=== PATIENT | female | born 1945 | race Caucasian/White ===

== ENCOUNTER 2017-11-11 03:53 | Inpatient (IN) | payer MEDICARE, OTHER, SELFPAY ==
[2017-11-11] VITALS (16 sets, daily range): BP systolic 112–154; BP diastolic 44–80; PULSE 71–110; RESP 16–26; TEMP 36.2–36.7; O2SAT 90–94; BMI 30.2; BMI 29.7; BMI 29.8
--- NOTE | 2017-11-11 03:55 | NURSING ---
CALLED FOR EKG PER RN REQUEST, PULLED OLD EKG'S FOR
--- NOTE | 2017-11-11 04:15 | RAD_ITS ---
STUDY: X-RAY CHEST REASON FOR EXAM: Female, 71 years old. Dyspnea TECHNIQUE: Frontal and lateral views of the chest. COMPARISON: October 09, 2016 FINDINGS: Ill-defined groundglass opacities are noted in the left lung base suggesting pneumonia in the lingula and left lower lobe. There is no demonstrated pleural abnormality. Normal size heart. Normal mediastinum and tj. Normal visualized pulmonary arteries. Normal visualized aortic arch and descending thoracic aorta. Normal visualized thoracic spine. Normal visualized ribs, clavicles, and shoulders. There is no demonstrated abnormality of the visualized soft tissue structures of the upper abdomen. RAD/Chest PA and Lateral IMPRESSION: Pneumonia in the lingula and left lower lobe. Electronically Signed: Caron Velazco MD at 5:18 EST Tel , Service support ,
--- NOTE | 2017-11-11 04:15 | EKG12_ITS ---
Test Reason : SOB Blood Pressure : / mmHG Vent. Rate : 102 BPM Atrial Rate : 102 BPM P-R Int : 116 ms QRS Dur : 078 ms QT Int : 348 ms P-R-T Axes : 087 072 078 degrees QTc Int : 453 ms Sinus tachycardia Nonspecific ST abnormality Abnormal ECG Confirmed by BRIAN ORELLANA, NATANAEL ([id number]), news copy editor HERI CUNHA ([id number]) on 11/16/2017 3:56:35 PM Referred By: NOAH Confirmed By:NATANAEL TORRES MD
[2017-11-11] MEDS: Albuterol 2.5 MG/3 ML VIAL.NEB. INHALATION ×3 (04:20→04:34)
[2017-11-11] MEDS: Ipratropium/Albuterol Sulfate 3 ML AMPUL.NEB INHALATION ×3 (04:20→20:10)
[2017-11-11 04:30] LABS: Absolute Lymphocyte Count 2.12 X10^3/ul (0.83-4.51); Basophil# 0.06 X10^3/uL; Basophil% 0.4 % (0-1); Eosinophil# 0.24 X10^3/uL; Eosinophils% 1.6 % (0-5); Hematocrit 37.4 % (37-47); Hemoglobin 12.4 g/dl (12.0-15.0); Lymphocyte # 2.12 X10^3/ul (4.0); Lymphocyte % 14.4 % (19-41); Mean Corp Hgb Conc 33.2 g/gl (32-36); Mean Corpuscular Hgb 30.8 pg (27.0-32.0); Mean Corpuscular Volume 92.8 fL (81-99); Mean Platelet Vol. 10.8 fl (6.2-12.0); Monocyte# 1.29 X10^3/uL; Monocyte% 8.8 % (0-10); Neutrophil # 10.97 X10^3/uL (2.7-7.7); Neutrophil % 74.5 % (47-70); Platelet Count 242 K/mm3 (150-450); RBC Distribution Width CV 13.1 % (11.6-14.6); Red Blood Count 4.03 M/mm3 (4.2-5.4); White Blood Count 14.7 K/mm3 (4.4-11.0)
[2017-11-11 04:35] LABS: POSITIVE COUNT NO; POSITIVE DIFFERENTIAL NO; POSITIVE MORPHOLOGY NO
[2017-11-11 04:53] LABS: Anion Gap 10 (5-15); BUN 18 mg/dL (7-18); BUN/Creat Ratio 16.2 RATIO (10-20); Calcium,Total 8.9 mg/dL (8.5-10.1); Chloride 100 mmol/L (98-107); Creatinine, Serum 1.11 mg/dL (0.55-1.02); EST Glomerular Filtration Rate 52 mL/min (>60); Est Glom Filt Rate - Afr Amer 62 mL/min (>60); Estimated Creatinine Clearance 33.87 ml/min; Glucose 178 mg/dL (70-110); Sodium Level 136 mmol/L (136-145)
--- NOTE | 2017-11-11 05:01 | CT_ITS ---
STUDY: CTA CHEST REASON FOR EXAM: Female, 71 years old. Dyspnea RADIATION DOSAGE (If Supplied By Facility): CTDIvol = ( 10.49 ) mGy, DLP = ( 511.64 ) mGycm TECHNIQUE: The examination was performed with the intravenous administration of 75CC ml of Isovue 370 contrast material. Post-processing of the angiographic images was performed, with multiplanar reformation and 3D reconstruction. Individualized dose optimization techniques were used for this CT. COMPARISON: None. FINDINGS: Normal enhancement of the main pulmonary artery and right and left pulmonary arteries. Normal enhancement of the bilateral peripheral pulmonary arteries. There is no demonstrated pulmonary embolism. Normal thoracic aorta and visualized great vessels. There is no demonstrated aortic dissection. Normal heart and pericardium. Normal mediastinum. Normal hilar regions. Normal visualized trachea and bronchi. The lungs are hyperinflated. Emphysematous changes are noted in both lungs predominantly centrilobular type more prominent in the upper lobes. Ill-defined airspace opacities are seen in the left upper lobe and lingula consistent with pneumonia. Normal pleura. Normal chest wall structures. There are degenerative changes and demineralization of thoracic spine. There is a benign adenoma and the right adrenal gland measures [address]/CTA Chest W/WO Contrast IMPRESSION: No demonstrated pulmonary embolism or arterial dissection. Left upper lobe and lingula pneumonia Electronically Signed: Caron Velazco MD at 7:35 EST Tel , Service support ,
[2017-11-11] MEDS: fentaNYL 100 MCG/2 ML Ampul 50 MCG IV ×3 (05:05→10:16)
[2017-11-11 05:08] LABS: BNP,B-Type NATRIURETIC PEPTIDE 90.1 pg/mL (0-100)
--- NOTE | 2017-11-11 05:35 | ED.DCSUM_ITS ---
- ER Visit Summary Date of Service: 11/11/17 Chief Complaint: [] Shortness of breath History of Present Illness: The patient is a 71 F complaining of shortness of breath for last several months but worse over the last 2 days. She has had some dyspnea on exertion with wheezing. She uses a nebulizer. She has a history of COPD. She has had a cough with yellow yellow sputum over the last 7 days intermittent fevers and chills. T-max 102 at home. She has had some left- sided chest pain tonight at 2 AM at rest. It hurts to take a deep breath. She has a history of coronary artery disease remotely with multiple stents. She had a CABG with aortic valve replacement a year ago. She is not on home oxygen. She did get a flu shot. Physical Examination: Vital signs reviewed General: Well-nourished well-developed Head: Normocephalic atraumatic Eyes: Pupils equal round and reactive to light extraocular movements intact ENT: TMs clear no hemotympanum no trauma Neck: Nontender full range of motion Cardiovascular: Regular tachycardia with normal rhythm no murmurs normal S1-S2 Respiratory: No distress very wheezes bilateral chest nontender Abdomen: Soft nontender nondistended normal bowel sounds no masses Back: Nontender no CVA tenderness Extremities: Nontender active range of motion ?4 extremities no trauma Skin: Normal color no trauma Neuro alert oriented cranial nerves II through XII intact normal strength sensation reflexes Test Results: [] Emergency Department Course and Treatment: [] EKG shows sinus at a rate of 102. Mild ST depression inferior lead II only. Chest x-ray shows a left-sided infiltrate pneumonia. CBC normal except white count of 14.7. Chemistries normal except creatinine 1.1 glucose 178. Troponin less than 0.02. BNP normal. Blood cultures pending. Lactate pending. Influenza negative. Patient given morphine and fentanyl for her pain. It is a sharp pleuritic pain likely from her pneumonia. She is given breathing treatments for her wheezing with good symptom control. She is placed on nasal cannula oxygen for her shortness of breath and pulse ox of 90%. Patient was started on levofloxacin for her pneumonia. She is given a small dose IV fluids and Solu-Medrol and Benadryl will be given prior to CTA. Will make sure she does not have a pulmonary embolism prior to admission. Treatment Plan: [] Disposition: [] Impression: [] Community-acquired pneumonia Left sided chest pain secondary to pneumonia This note was generated with [employer] dictation software. It may contain incorrect words, spelling, and punctuation that were not noted in review of the chart prior to signing ED Disposition - Plan for ED Patient: Chief Complaint: Shortness of Breath Referrals: Heidy Lowry [Primary Care Provider] -
[2017-11-11] MEDS: MethylPREDNISolone 125 MG/2 ML Vial IV (05:36)
[2017-11-11] MEDS: DiphenhydrAMINE 50 MG/ML Syringe 25 MG IV (05:36)
[2017-11-11 05:59] LABS: Lactic Acid 1.8 mmol/L (0.4-2.0)
--- NOTE | 2017-11-11 06:25 | PCM.HP.STD ---
Problem List (1) Shortness of breath Status: Acute (2) Left sided chest pain Status: Acute (3) Productive cough Status: Acute History of Present Illness Date of Admission: 11/11/17 Chief Complaint: Productive cough, left-sided chest pain, shortness of breath The patient is a 71 year old F was seen in the emergency room at [facility] with chief complaint of increased shortness of breath, left-sided sharp chest pain which worsened on cough or deep inspiration and cough productive of yellow and green sputum over the past week. Patient states the left-sided chest pain started early this morning. Patient denied any hemoptysis. Patient admits to chills and fever yesterday, she states her temperature was up to 102.1. Patient has a history of chronic obstructive pulmonary disease but does not wear oxygen but uses inhalers at home. Patient states she had a CT of her chest done in [facility] in September 2017 and according to the patient, it showed a nodule in the right lung. Valuation in the emergency room included labs which showed an elevated white blood cell count of 14.7, beta natruretic peptide was normal at 90, creatinine was elevated at 1.11, glucose is 178, lactic acid was 1.8. Chest x-ray revealed chronic lung changes but also showed evidence of an infiltrate over the left lower lobe. On physical examination, patient had expiratory wheezes over both lungs with inspiratory rales over the left lower lobe, heart rate and rhythm is regular, patient was alert but was complaining of some left-sided sharp chest pain. Emergency room physician requested that a CTA of the chest be performed, at the time of this dictation this CTA of the chest is pending. Patient will be admitted for left lower lobe community-acquired pneumonia and exacerbation of COPD, she will be placed on IV Levaquin, aggressive aerosol treatments, IV Solu-Medrol, urine antigens will be ordered, and sputum culture will be obtained. Blood cultures were obtained in the emergency room. Past Medical History Allergies Sulfa (Sulfonamide Antibiotics) Allergy (Verified 11/11/17 03:54) Rash carbamazepine [From Tegretol] Adverse Reaction (Verified 11/11/17 03:54) liver damage famotidine [From Pepcid] Adverse Reaction (Verified 11/11/17 03:54) hair loss ivp dye Allergy (Uncoded 11/11/17 03:54) Hives Home Medications: Ambulatory Orders Medication Instructions Recorded Aspirin [Aspirin, Baby] 81 mg PO BID 10/08/16 Ipratropium/Albuterol Respimat 1 puff INHALATION BID 10/08/16 [Combivent Respimat Inhal [place]] Metoprolol Tartrate [Lopressor 50 mg PO BID 10/08/16 (beta gila)] Pantoprazole Sodium [Protonix] 40 mg PO DAILY 10/08/16 Rosuvastatin Calcium [Crestor] 20 mg PO QHS 10/08/16 Valsartan [Diovan] 80 mg PO BID 10/08/16 Amlodipine [Norvasc] 2.5 mg PO DAILY 11/11/17 Fluticasone/Salmeterol [Advair 1 puff INHALATION BID 11/11/17 250/50 Mcg Diskus] Hydrochlorothiazide [Hctz] 25 mg PO DAILY 11/11/17 Montelukast [Singulair] 10 mg PO DAILY 11/11/17 Surgical History: cataract, cholecystectomy, coronary bypass surgery, herniorrhaphy, - - Partial gastrectomy secondary to gastric cancer in 2011, neurostimulator implant left arm due to cut radial nerve, partial colon resection secondary to diverticulitis, bioprosthetic aortic valve, coronary artery stents Psychiatric History: No pertinent psych hx 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 Denies: Anorexia, Night Sweats, Weakness, Weight Change Eyes: Denies: Blurred vision, Cataracts, Conjunctivae Inflammation, Double vision, Drainage, Eyelid Inflammation HEENT: Denies: Difficulty Swallowing, Dysphasia, Ear Pain, Eye Pain, Head Aches, Hearing Changes, Nasal bleeding, Nasal Congestion, Sinus Drainage Cardiovascular: Reports: Chest Pain. Denies: Claudication, Chest Pressure, Chest Tightness, Edema, Heaviness, Light Headedness, Orthopnea, Palpitations, Paroxysmal Noc. Dyspnea, Syncope Respiratory: Reports: Cough, Pleuritic Pain, Shortness of Breath, Shortness of breath at rest, Shortness of breath upon exertion, Sputum production, Wheezing. Denies: Hemoptysis Gastrointestinal: Denies: Abdominal Pain, Constipation, Diarrhea, Hematemesis, Hematochezia, Nausea, Melena, Vomiting Genitourinary: Denies: Dysuria, Frequency, Hematuria, Hesitancy, Incontinence, Nocturia, Urgency Gynecological: Denies: Breast symptoms Musculoskeletal: Denies: Foot Pain, Hand Pain, Joint Pain, Joint stiffness, Joint swelling, Joint Tenderness, Leg Pain Skin: Denies: Dryness, Jaundice, Pruritis, Rash Neurological: Denies: Blurred vision, Double vision, Slurred speech, Difficulty swallowing, Focal weakness, Headaches, Incoordination, Numbness, Tingling Psychiatric: Denies: Anxiety, Depression, Homicidal Ideations, Suicidal Ideations Endocrine: Denies: Change in Body Habitus, Heat/ Cold Intolerance, Polydipsia, Polyuria Hematologic/ Lymphatic: Denies: Adenopathy, Anemia, Easy Bruising, Easy Bleeding, Petechiae, Purpura VTE Information - Inpt Only VTE Present on Admission: No VTE Mechan Device Prophylaxis: None VTE Pharm Prophylaxis ordered?: Yes Patient Problems: Active and Suspected Problems Shortness of breath (Acute) Left sided chest pain (Acute) Productive cough (Acute) - Physical Exam General: Alert, Oriented x3, Cooperative, No apparent distress, Well developed, Well nourished HEENT: Atraumatic, PERRLA, EOMI, Normocephalic Oral: Moist Mucosa Neck: Supple, No JVD, Negative Carotid Bruits, No Nuchal Rigidity, Trachea Midline, Thyroid Normal Size and Texture Lungs: Normal air movement, No rhonchi, Rales - Inspiratory rales at the left lung base, Wheezes - Expiratory wheezes bilaterally Cardiovascular: Regular rate, Regular Rhythm, Normal S1, Normal S2, No murmurs, No Ectopic Activity, PMI Normal, No rub noted, No Gallop Abdomen: Bowel Sounds Present, Soft, Non Tender, Non-Distended, No hernias noted Extremities: No clubbing, No cyanosis, No edema, Capillary Refill Less than 3 Seconds Skin: No rashes, No breakdown Musculoskeletal: No Tenderness to Palpation of Joints or Extremities Neurological: Cranial nerves II-XII grossly intact, Neuro grossly intact, Muscle tone normal, Sensory exam intact to light touch and pain, Coordination normal Psych/Mental Status: Normal Affect, Appropriate, Alert and oriented to time, place, person, mood and affect Vital Signs Temp Pulse Resp BP Pulse Ox 97.7 F L 100 18 112/44 L 93 11/11/17 05:43 11/11/17 06:08 11/11/17 06:08 11/11/17 06:08 11/11/17 06:08 Oxygen Flow Rate 2 Oxygen Delivery Method Nasal Cannula Weight: 70.3 kg Body Mass Index (BMI) 30.2 Microbiology Past 72 Hours 11/11/17 04:18 Influenza Types A,B Direct FA (ALEXUS) - Final Mucosa - Nose Laboratory Tests Past 24 Hrs 11/11/17 11/11/17 11/11/17 03:55 03:55 03:55 WBC 14.7 H RBC 4.03 L Hgb 12.4 Hct 37.4 MCV 92.8 MCH 30.8 MCHC 33.2 RDW 13.1 RDW Differential 43.0 Plt Count 242 MPV 10.8 Immature Gran % (Auto) 0.300 Neut % (Auto) 74.5 H Lymph % (Auto) 14.4 L Stevens % (Auto) 8.8 Eos % (Auto) 1.6 Baso % (Auto) 0.4 Absolute Neuts (auto) 11.0 H Absolute Lymphs (auto) 2.12 Total Counted Not Reportable Sodium 136 Potassium 4.0 Chloride 100 Carbon Dioxide 26.0 Anion Gap 10 BUN 18 Creatinine 1.11 H Estim Creat Clear Calc 33.87 Est GFR (MDRD) Af Amer 62 Est GFR (MDRD) Non-Af 52 L BUN/Creatinine Ratio 16.2 Glucose 178 H Lactic Acid Calcium 8.9 Troponin I < 0.02 B-Natriuretic Peptide 90.1 11/11/17 05:20 WBC RBC Hgb Hct MCV MCH MCHC RDW RDW Differential Plt Count MPV Immature Gran % (Auto) Neut % (Auto) Lymph % (Auto) Stevens % (Auto) Eos % (Auto) Baso % (Auto) Absolute Neuts (auto) Absolute Lymphs (auto) Total Counted Sodium Potassium Chloride Carbon Dioxide Anion Gap BUN Creatinine Estim Creat Clear Calc Est GFR (MDRD) Af Amer Est GFR (MDRD) Non-Af BUN/Creatinine Ratio Glucose Lactic Acid 1.8 Calcium Troponin I B-Natriuretic Peptide Assessment/Plan Active and Suspected Problems Shortness of breath (Acute) Left sided chest pain (Acute) Productive cough (Acute) #1 left lower lobe community-acquired pneumonia-suspect gram-positive bacteria-patient will be admitted to [facility], IV Levaquin will be given, aerosol treatments will be given, sputum culture will be obtained, urine for Legionella and strep pneumoniae will be obtained, respiratory panel will be obtained #2 exacerbation of COPD-IV corticosteroids will be administered, aerosol treatments will be administered, oxygen sat will be monitored-currently patient's oxygen sat on room air is 90% #3 left-sided chest pain-pleuritic in nature #4 coronary artery disease-stable #5 hypertension #6 hyperlipidemia #7 history of right pulmonary nodule/mass-patient's last CT chest was done in [place] of September 2017 Await the results of the CTA of the chest Code Visit Inpatient E&M: 39962 Init Hosp L3
--- NOTE | 2017-11-11 06:35 | HP.PCM_ITS ---
Problem List (1) Shortness of breath Status: Acute (2) Left sided chest pain Status: Acute (3) Productive cough Status: Acute History of Present Illness Date of Admission: 11/11/17 Chief Complaint: Productive cough, left-sided chest pain, shortness of breath The patient is a 71 year old F was seen in the emergency room at [facility] with chief complaint of increased shortness of breath, left- sided sharp chest pain which worsened on cough or deep inspiration and cough productive of yellow and green sputum over the past week. Patient states the left-sided chest pain started early this morning. Patient denied any hemoptysis. Patient admits to chills and fever yesterday, she states her temperature was up to 102.1. Patient has a history of chronic obstructive pulmonary disease but does not wear oxygen but uses inhalers at home. Patient states she had a CT of her chest done in [facility] in September 2017 and according to the patient, it showed a nodule in the right lung. Valuation in the emergency room included labs which showed an elevated white blood cell count of 14.7, beta natruretic peptide was normal at 90, creatinine was elevated at 1.11, glucose is 178, lactic acid was 1.8. Chest x-ray revealed chronic lung changes but also showed evidence of an infiltrate over the left lower lobe. On physical examination, patient had expiratory wheezes over both lungs with inspiratory rales over the left lower lobe, heart rate and rhythm is regular, patient was alert but was complaining of some left-sided sharp chest pain. Emergency room physician requested that a CTA of the chest be performed, at the time of this dictation this CTA of the chest is pending. Patient will be admitted for left lower lobe community-acquired pneumonia and exacerbation of COPD, she will be placed on IV Levaquin, aggressive aerosol treatments, IV Solu-Medrol, urine antigens will be ordered, and sputum culture will be obtained. Blood cultures were obtained in the emergency room. Past Medical History Allergies Sulfa (Sulfonamide Antibiotics) Allergy (Verified 11/11/17 03:54) Rash carbamazepine [From Tegretol] Adverse Reaction (Verified 11/11/17 03:54) liver damage famotidine [From Pepcid] Adverse Reaction (Verified 11/11/17 03:54) hair loss ivp dye Allergy (Uncoded 11/11/17 03:54) Hives Home Medications: Ambulatory Orders Medication Instructions Recorded Aspirin [Aspirin, Baby] 81 mg PO BID 10/08/16 Ipratropium/Albuterol Respimat 1 puff INHALATION BID 10/08/16 [Combivent Respimat Inhal [place]] Metoprolol Tartrate [Lopressor 50 mg PO BID 10/08/16 (beta gila)] Pantoprazole Sodium [Protonix] 40 mg PO DAILY 10/08/16 Rosuvastatin Calcium [Crestor] 20 mg PO QHS 10/08/16 Valsartan [Diovan] 80 mg PO BID 10/08/16 Amlodipine [Norvasc] 2.5 mg PO DAILY 11/11/17 Fluticasone/Salmeterol [Advair 1 puff INHALATION BID 11/11/17 250/50 Mcg Diskus] Hydrochlorothiazide [Hctz] 25 mg PO DAILY 11/11/17 Montelukast [Singulair] 10 mg PO DAILY 11/11/17 Surgical History: cataract, cholecystectomy, coronary bypass surgery, herniorrhaphy, - - Partial gastrectomy secondary to gastric cancer in 2011, neurostimulator implant left arm due to cut radial nerve, partial colon resection secondary to diverticulitis, bioprosthetic aortic valve, coronary artery stents 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 Denies: Anorexia, Night Sweats, Weakness, Weight Change Eyes: Denies: Blurred vision, Cataracts, Conjunctivae Inflammation, Double vision, Drainage, Eyelid Inflammation HEENT: Denies: Difficulty Swallowing, Dysphasia, Ear Pain, Eye Pain, Head Aches , Hearing Changes, Nasal bleeding, Nasal Congestion, Sinus Drainage Cardiovascular: Reports: Chest Pain. Denies: Claudication, Chest Pressure, Chest Tightness, Edema, Heaviness, Light Headedness, Orthopnea, Palpitations, Paroxysmal Noc. Dyspnea, Syncope Respiratory: Reports: Cough, Pleuritic Pain, Shortness of Breath, Shortness of breath at rest, Shortness of breath upon exertion, Sputum production, Wheezing. Denies: Hemoptysis Gastrointestinal: Denies: Abdominal Pain, Constipation, Diarrhea, Hematemesis, Hematochezia, Nausea, Melena, Vomiting Genitourinary: Denies: Dysuria, Frequency, Hematuria, Hesitancy, Incontinence, Nocturia, Urgency Gynecological: Denies: Breast symptoms Musculoskeletal: Denies: Foot Pain, Hand Pain, Joint Pain, Joint stiffness, Joint swelling, Joint Tenderness, Leg Pain Skin: Denies: Dryness, Jaundice, Pruritis, Rash Neurological: Denies: Blurred vision, Double vision, Slurred speech, Difficulty swallowing, Focal weakness, Headaches, Incoordination, Numbness, Tingling Psychiatric: Denies: Anxiety, Depression, Homicidal Ideations, Suicidal Ideations Endocrine: Denies: Change in Body Habitus, Heat/ Cold Intolerance, Polydipsia, Polyuria Hematologic/ Lymphatic: Denies: Adenopathy, Anemia, Easy Bruising, Easy Bleeding , Petechiae, Purpura VTE Information - Inpt Only VTE Present on Admission: No VTE Mechan Device Prophylaxis: None VTE Pharm Prophylaxis ordered?: Yes Patient Problems: Active and Suspected Problems Shortness of breath (Acute) Left sided chest pain (Acute) Productive cough (Acute) - Physical Exam General: Alert, Oriented x3, Cooperative, No apparent distress, Well developed, Well nourished HEENT: Atraumatic, PERRLA, EOMI, Normocephalic Oral: Moist Mucosa Neck: Supple, No JVD, Negative Carotid Bruits, No Nuchal Rigidity, Trachea Midline, Thyroid Normal Size and Texture Lungs: Normal air movement, No rhonchi, Rales - Inspiratory rales at the left lung base, Wheezes - Expiratory wheezes bilaterally Cardiovascular: Regular rate, Regular Rhythm, Normal S1, Normal S2, No murmurs, No Ectopic Activity, PMI Normal, No rub noted, No Gallop Abdomen: Bowel Sounds Present, Soft, Non Tender, Non-Distended, No hernias noted Extremities: No clubbing, No cyanosis, No edema, Capillary Refill Less than 3 Seconds Skin: No rashes, No breakdown Musculoskeletal: No Tenderness to Palpation of Joints or Extremities Neurological: Cranial nerves II-XII grossly intact, Neuro grossly intact, Muscle tone normal, Sensory exam intact to light touch and pain, Coordination normal Psych/Mental Status: Normal Affect, Appropriate, Alert and oriented to time, place, person, mood and affect Vital Signs Temp Pulse Resp BP Pulse Ox 97.7 F L 100 18 112/44 L 93 11/11/17 05:43 11/11/17 06:08 11/11/17 06:08 11/11/17 06:08 11/11/17 06:08 Oxygen Flow Rate 2 Oxygen Delivery Method Nasal Cannula Weight: 70.3 kg Body Mass Index (BMI) 30.2 Microbiology Past 72 Hours 11/11/17 04:18 Influenza Types A,B Direct FA (ALEXUS) - Final Mucosa - Nose Laboratory Tests Past 24 Hrs 11/11/17 11/11/17 11/11/17 03:55 03:55 03:55 WBC 14.7 H RBC 4.03 L Hgb 12.4 Hct 37.4 MCV 92.8 MCH 30.8 MCHC 33.2 RDW 13.1 RDW Differential 43.0 Plt Count 242 MPV 10.8 Immature Gran % (Auto) 0.300 Neut % (Auto) 74.5 H Lymph % (Auto) 14.[address] [place] % (Auto) 8.8 Eos % (Auto) 1.6 Baso % (Auto) 0.4 Absolute Neuts (auto) 11.0 H Absolute Lymphs (auto) 2.12 Total Counted Not Reportable Sodium 136 Potassium 4.0 Chloride 100 Carbon Dioxide 26.0 Anion Gap 10 BUN 18 Creatinine 1.11 H Estim Creat Clear Calc 33.87 Est GFR (MDRD) Af Amer 62 Est GFR (MDRD) Non-Af 52 L BUN/Creatinine Ratio 16.2 Glucose 178 H Lactic Acid Calcium 8.9 Troponin I < 0.02 B-Natriuretic Peptide 90.1 11/11/17 05:20 WBC RBC Hgb Hct MCV MCH MCHC RDW RDW Differential Plt Count MPV Immature Gran % (Auto) Neut % (Auto) Lymph % (Auto) [place] % (Auto) Eos % (Auto) Baso % (Auto) Absolute Neuts (auto) Absolute Lymphs (auto) Total Counted Sodium Potassium Chloride Carbon Dioxide Anion Gap BUN Creatinine Estim Creat Clear Calc Est GFR (MDRD) Af Amer Est GFR (MDRD) Non-Af BUN/Creatinine Ratio Glucose Lactic Acid 1.8 Calcium Troponin I B-Natriuretic Peptide Assessment/Plan Active and Suspected Problems Shortness of breath (Acute) Left sided chest pain (Acute) Productive cough (Acute) #1 left lower lobe community-acquired pneumonia-suspect gram-positive bacteria- patient will be admitted to [facility], IV Levaquin will be given, aerosol treatments will be given, sputum culture will be obtained, urine for Legionella and strep pneumoniae will be obtained, respiratory panel will be obtained #2 exacerbation of COPD-IV corticosteroids will be administered, aerosol treatments will be administered, oxygen sat will be monitored-currently patient' s oxygen sat on room air is 90% #3 left-sided chest pain-pleuritic in nature #4 coronary artery disease-stable #5 hypertension #6 hyperlipidemia #7 history of right pulmonary nodule/mass-patient's last CT chest was done in [place] of September 2017 Await the results of the CTA of the chest Code Visit Inpatient E&M: 74923 Init Hosp L3
--- NOTE | 2017-11-11 06:43 | NURSING ---
med surg left cap, exac of copd diya
--- NOTE | 2017-11-11 07:18 | NURSING ---
NO LW OR POA
--- NOTE | 2017-11-11 08:40 | PCM.PROGNOTE ---
Patient Problems: Active and Suspected Problems Shortness of breath (Acute) Left sided chest pain (Acute) Productive cough (Acute) Subjective: Levaquin day #1 Patient is a 71-year-old female with a past medical history of COPD, hypertension, GERD, hyperlipidemia, coronary artery disease with history of CABG, history of gastric cancer with partial gastrectomy in 2011, diverticulosis with history of diverticulitis and partial colon resection, bioprosthetic aortic valve replacement and coronary stents who presented to the emergency room at [facility] on 11/11/2017 complaining of sharp left chest pain, shortness of breath and worsening cough. Cough is productive of yellow and green sputum. She stated her temperature on 11/10/2017 was 102.1. Vital signs at presentation to the emergency room were temperature 97.7, pulse rate 102, blood pressure 119/68, respiratory rate 20 and she was 90% saturated on room air. White blood cell count was elevated at 14.7 with a mild left shift. Electrolytes were within normal limits and the creatinine was 1.11 with a BUN of 18. Creatinine in September 2016 was 0.69. Random glucose was increased at 178 and the lactic acid was 1.8. Lactic acid was 1.8 and the BNP was 90. Chest x-ray to admission showed pneumonia on the left side. The ER physician was concerned about a possible pulmonary embolus because of the sharp left chest pain and a CTA of the chest was ordered and had no PE's but confirmed patchy infiltrates in the left lower lobe and lingula. It also showed extensive emphysematous changes....worse in the upper lobes. She was admitted to the hospital with a diagnosis of pneumonia with acute exacerbation of COPD/emphysema. Levaquin was continued and hydrochlorothiazide was discontinued. RBS was increased at 178 and she has no hx of DM. No recent prednisone but has been on prednisone at least 3-4 times since July. Tells me that she started coughing in July and has not felt well since. PCP has had her on several different antibiotics but the chest XRAYS have not shown pneumonia. She just stopped smoking in October 2016 and tells me that she smoked for 30 years. No weight loss. She is not on oxygen at home. She has been following with Dr. Parisi at [facility] for pulmonary but would like to see someone closer. She has not seen the Equipment Operator Wage Hand since July and does not have an appt until February. States she had PFT's and has been told she has COPD. Sleep study did not show sleep apnea. Has been having shaking chills for 2 days and fevers at home. She denies nausea, vomiting, myalgias and arthralgias. She is complaining of a sharp pain in the left lower thoracic area that radiates from the back around the ribs and into the sternum......she has pain with palpation along the rib and the pain increases with deep breathing and with movement. - Physical Exam General: Alert, Oriented x3, Cooperative, Well developed, Well nourished HEENT: Atraumatic, PERRLA, EOMI, Normocephalic Oral: Dry Mucosa Neck: Supple, Negative Carotid Bruits Lungs: No rhonchi, No rales, Diminished - poor air exchange, Wheezes - rare wheeze Cardiovascular: Regular Rhythm, Normal S1, Normal S2, No murmurs, No rub noted, No Gallop Abdomen: Bowel Sounds Present, Soft, Non Tender, Non-Distended Extremities: No clubbing, No cyanosis, No edema, Peripheral Pulses Normal Skin: No rashes, No breakdown Musculoskeletal: - - rib pain in the left lower thoracic area that follows along the rib from the back and radiating around to the anterior chest. Neurological: Cranial nerves II-XII grossly intact, Neuro grossly intact Psych/Mental Status: Normal Affect, Appropriate Vital Signs Temp Pulse Resp BP Pulse Ox 97.7 F L 92 20 H 130/61 H 92 11/11/17 08:31 11/11/17 08:31 11/11/17 08:31 11/11/17 08:31 11/11/17 08:31 Oxygen Flow Rate 2 Oxygen Delivery Method Nasal Cannula Weight: 152 lb 5.431 oz Body Mass Index (BMI) 29.7 Assessment/Plan Active and Suspected Problems Shortness of breath (Acute) Left sided chest pain (Acute) Productive cough (Acute) Impressions 1. community acquired PNA 2. acute exacerbation COPD 3. L chest pain secondary to rib dysfunction 4. COPD 5. hx of Gastric CA with partial gastrectomy 6. partial colon resection for diverticular disease 7. bioprosthetic AVR in October of 2016 8. Former smoker - quit in October of 2016 9. CAD with hx of CABG and PCI with stents 10. Hypertension 11. GERD 12. elevated creat likely prerenal....HCTZ is on hold and she is going to get 2 liters of IV fluids 13. hyperglycemia - no recent steroids and no hx of DM II 14. overweight 15. hx of a pulmonary nodule found on a CT scan of the chest done at [facility] in August of 2017. Consult Dr. Winston Obtain the CT report from [address] and the disc if possible Obtain records from her redye hand at [facility] Obtain sputum sample Incentive spirometry and Acapella Continue intravenous steroids and Levaquin Zanaflex and Toradol ?1 now and OMT to the left ribs to follow Code Visit Procedures: [id number] Prolonged InPt Service; first hour
--- NOTE | 2017-11-11 08:54 | PN_ITS ---
Patient Problems: Active and Suspected Problems Shortness of breath (Acute) Left sided chest pain (Acute) Productive cough (Acute) Subjective: Levaquin day #1 Patient is a 71-year-old female with a past medical history of COPD, hypertension, GERD, hyperlipidemia, coronary artery disease with history of CABG , history of gastric cancer with partial gastrectomy in 2011, diverticulosis with history of diverticulitis and partial colon resection, bioprosthetic aortic valve replacement and coronary stents who presented to the emergency room at [facility] on 11/11/2017 complaining of sharp left chest pain, shortness of breath and worsening cough. Cough is productive of yellow and green sputum. She stated her temperature on 11/10/2017 was 102.1. Vital signs at presentation to the emergency room were temperature 97.7, pulse rate 102, blood pressure 119/68, respiratory rate 20 and she was 90% saturated on room air. White blood cell count was elevated at 14.7 with a mild left shift. Electrolytes were within normal limits and the creatinine was 1.11 with a BUN of 18. Creatinine in September 2016 was 0.69. Random glucose was increased at 178 and the lactic acid was 1.8. Lactic acid was 1.8 and the BNP was 90. Chest x-ray to admission showed pneumonia on the left side. The ER physician was concerned about a possible pulmonary embolus because of the sharp left chest pain and a CTA of the chest was ordered and had no PE's but confirmed patchy infiltrates in the left lower lobe and lingula. It also showed extensive emphysematous changes....worse in the upper lobes. She was admitted to the hospital with a diagnosis of pneumonia with acute exacerbation of COPD/ emphysema. Levaquin was continued and hydrochlorothiazide was discontinued. RBS was increased at 178 and she has no hx of DM. No recent prednisone but has been on prednisone at least 3-4 times since July. Tells me that she started coughing in July and has not felt well since. PCP has had her on several different antibiotics but the chest XRAYS have not shown pneumonia. She just stopped smoking in October 2016 and tells me that she smoked for 30 years. No weight loss. She is not on oxygen at home. She has been following with Dr. Parisi at [facility] for pulmonary but would like to see someone closer. She has not seen the Beveller Operator since July and does not have an appt until February. States she had PFT's and has been told she has COPD. Sleep study did not show sleep apnea. Has been having shaking chills for 2 days and fevers at home. She denies nausea , vomiting, myalgias and arthralgias. She is complaining of a sharp pain in the left lower thoracic area that radiates from the back around the ribs and into the sternum......she has pain with palpation along the rib and the pain increases with deep breathing and with movement. - Physical Exam General: Alert, Oriented x3, Cooperative, Well developed, Well nourished HEENT: Atraumatic, PERRLA, EOMI, Normocephalic Oral: Dry Mucosa Neck: Supple, Negative Carotid Bruits Lungs: No rhonchi, No rales, Diminished - poor air exchange, Wheezes - rare wheeze Cardiovascular: Regular Rhythm, Normal S1, Normal S2, No murmurs, No rub noted, No Gallop Abdomen: Bowel Sounds Present, Soft, Non Tender, Non-Distended Extremities: No clubbing, No cyanosis, No edema, Peripheral Pulses Normal Skin: No rashes, No breakdown Musculoskeletal: - - rib pain in the left lower thoracic area that follows along the rib from the back and radiating around to the anterior chest. Neurological: Cranial nerves II-XII grossly intact, Neuro grossly intact Psych/Mental Status: Normal Affect, Appropriate Vital Signs Temp Pulse Resp BP Pulse Ox 97.7 F L 92 20 H 130/61 H 92 11/11/17 08:31 11/11/17 08:31 11/11/17 08:31 11/11/17 08:31 11/11/17 08:31 Oxygen Flow Rate 2 Oxygen Delivery Method Nasal Cannula Weight: 152 lb 5.431 oz Body Mass Index (BMI) 29.7 Assessment/Plan Active and Suspected Problems Shortness of breath (Acute) Left sided chest pain (Acute) Productive cough (Acute) Impressions 1. community acquired PNA 2. acute exacerbation COPD 3. L chest pain secondary to rib dysfunction 4. COPD 5. hx of Gastric CA with partial gastrectomy 6. partial colon resection for diverticular disease 7. bioprosthetic AVR in October of 2016 8. Former smoker - quit in October of 2016 9. CAD with hx of CABG and PCI with stents 10. Hypertension 11. GERD 12. elevated creat likely prerenal....HCTZ is on hold and she is going to get 2 liters of IV fluids 13. hyperglycemia - no recent steroids and no hx of DM II 14. overweight 15. hx of a pulmonary nodule found on a CT scan of the chest done at [facility] in August of 2017. Consult Dr. Winston Obtain the CT report from [facility] [address] and the disc if possible Obtain records from her crane hooker at [facility] Obtain sputum sample Incentive spirometry and Acapella Continue intravenous steroids and Levaquin Zanaflex and Toradol ?1 now and OMT to the left ribs to follow Code Visit Procedures: [id number] Prolonged InPt Service; first hour
[2017-11-11] MEDS: 0.9% NaCl Peripheral Flush Adult/Peds IV ×2 (10:16→21:05)
[2017-11-11 11:15] LABS: AST(SGOT) 29 U/L (15-37); Alanine Aminotransfer ALT/SGPT 24 U/L (13-56); Albumin, Serum 3.3 g/dL (3.2-5.0); Alkaline Phosphatase 104 U/L (45-117); Bilirubin, Direct 0.11 mg/dL (0.00-0.30); Globulin 4.5 g/dL (2.2-4.2); Magnesium 2.1 mg/dL (1.6-2.6); Phosphorus 3.4 mg/dL (2.5-4.9); Protein, Total 7.8 g/dL (6.4-8.2)
[2017-11-11] MEDS: Ketorolac 30 MG/ML Syringe IV (11:18)
[2017-11-11] MEDS: tiZANidine HCl 2 MG Tablet 4 MG PO (11:18)
[2017-11-11] MEDS: Metoprolol Tartrate 50 MG Tablet PO ×2 (11:19→21:05)
[2017-11-11] MEDS: Pantoprazole Sodium 40 MG Tablet PO (11:20)
[2017-11-11] MEDS: Montelukast 10 MG Tablet PO (11:20)
[2017-11-11] MEDS: Aspirin 81 MG TAB.CHEW PO ×2 (11:20→16:24)
--- NOTE | 2017-11-11 11:24 | PCM.CONS.GEN ---
Problem List (1) COPD with acute exacerbation Status: Acute (2) Left sided chest pain Status: Acute (3) CAD (coronary artery disease) of artery bypass graft Status: Chronic Comment: 10/2016 (4) History of gastric cancer Status: Chronic (5) Diverticulosis Status: Chronic (6) History of partial gastrectomy Status: Chronic (7) H/O aortic valve replacement Status: Chronic Reason for Consult Date of Consultation: 11/11/17 Reason for Consultation: pneumonia, COPD exac History of Present Illness: The patient is a 71 year old F with past medical history as below who presented to the emergency room with complaints of increased shortness of breath, severe left-sided/ sharp chest pain that worsened with cough or deep inspiration, and productive sputum of yellow to green sputum. She had fever and shaking chills the day prior to presentation with a T high of 102.1?F at home. Patient reports she has not been well respiratory shelby since late June after exposure to a sick relative. She has followed up with her primary care physician who has placed her on multiple antibiotics and steroid bursts. Patient reports she typically improves on Levaquin and steroid tapers, however they do not seem to be working anymore. Her chest x-rays reportedly did not show any pneumonia at that time. She last saw her railway traction line worker, Dr. Perez at [facility] in July and she was switched from Breo back to Advair secondary to unchanged shortness of breath. She has been on multiple other inhalers, including Spiriva. She does also take PRN albuterol and Combivent twice daily. She believes her last pulmonary function tests were just prior to her open heart surgery in October 2016. She was told she had COPD. She has never required any home oxygen supplementation. Patient does note that her father had tuberculosis when she was a child and he was in a sanitarium for quite some time, the children apparently were tested with no evidence of TB. [place] and said she is sure she had other exposures. She denies any exposure to asbestos. 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 She denies any recent weight loss, night sweats, or hemoptysis. Initial vital signs BP 119/68, pulse 102, RR 20, 97.7?F, and 90% on room air. Blood work showed an elevated white count of 14,700 with left shift, normal hemoglobin. Chemistry remarkable for elevated creatinine of 1.11 and glucose of 178. Lactate, magnesium, troponin, and BNP all normal. Chest x-ray 11/09 showed ill-defined groundglass glass opacities left lung base suggesting pneumonia in the lingula and left lower lobe. No pleural abnormality. CTA of the chest performed secondary to concern for pulmonary embolus with her severe left sided chest pain, showed no demonstrated PE or dissection, positive for left upper lobe and lingula pneumonia. There is emphysematous changes in both lungs, predominantly centrilobular type with more prominence in upper lobes. Patient also reports she had a CT of the chest done in [place] sometime maybe last year that showed a right pulmonary nodule in the upper lung measuring 3mm, which has been followed with serial CTs, next scheduled in March 2018. There was no evidence of a nodule on CTA. Urine strep/Legionella antigens were negative. Influenza negative. Blood cultures and sputum culture are pending, well as respiratory panel. The patient was admitted to the medical surgical floor for further management. Patient had a heart catheterization at [facility] in [place] on 04/26/15 that showed 40% stenosis in the ostial circumflex with patent stents proximally, mild RCA with 50% PL branch, minimal , and mild LAD disease. Recommendations were for noncardiac chest pain evaluation at that time. Spoke with Dr. Boo, who is the hospitalist seeing the patient today and she believes she has a rib out of place on the left side, which could explain her chest discomfort. She plans on manipulating the dislocated rib after administering muscle relaxants. Dr. Boo has requested records from Dr. Perez's office and from [place]. Past Medical History Past Medical History (Chronic Problems): Chronic Problems History of gastric cancer (Chronic) Diverticulosis (Chronic) History of partial gastrectomy (Chronic) H/O aortic valve replacement (Chronic) CAD (coronary artery disease) of artery bypass graft (Chronic) 10/2016 Allergies Sulfa (Sulfonamide Antibiotics) Allergy (Verified 11/11/17 03:54) Rash carbamazepine [From Tegretol] Adverse Reaction (Verified 11/11/17 03:54) liver damage famotidine [From Pepcid] Adverse Reaction (Verified 11/11/17 03:54) hair loss ivp dye Allergy (Uncoded 11/11/17 03:54) Hives Home Medications: Ambulatory Orders Medication Instructions Recorded Aspirin [Aspirin, Baby] 81 mg PO BID 10/08/16 Ipratropium/Albuterol Respimat 1 puff INHALATION BID 10/08/16 [Combivent Respimat Inhal [place]] Metoprolol Tartrate [Lopressor 50 mg PO BID 10/08/16 (beta gila)] Pantoprazole Sodium [Protonix] 40 mg PO DAILY 10/08/16 Rosuvastatin Calcium [Crestor] 20 mg PO QHS 10/08/16 Valsartan [Diovan] 80 mg PO BID 10/08/16 Amlodipine [Norvasc] 2.5 mg PO DAILY 11/11/17 Fluticasone/Salmeterol [Advair 1 puff INHALATION BID 11/11/17 250/50 Mcg Diskus] Hydrochlorothiazide [Hctz] 25 mg PO DAILY 11/11/17 Montelukast [Singulair] 10 mg PO DAILY 11/11/17 Surgical History: cataract, cholecystectomy, coronary bypass surgery, herniorrhaphy, - - Partial gastrectomy secondary to gastric cancer in 2011, neurostimulator implant left arm due to cut radial nerve, partial colon resection secondary to diverticulitis, bioprosthetic aortic valve, coronary artery stents Psychiatric History: No pertinent psych hx PHOTONICS ENGINEERING TECHNOLOGIST History: No pertinent PHOTONICS ENGINEERING TECHNOLOGIST history Lives: Spouse/ Significant Other Smoking Status: Former smoker - [id number] history, quit 10/2016 Tobacco Use: Non-smoker Alcohol: Rare Drugs: None - *Family History Maternal History Items: Diabetes, - - aneurysm Paternal History Items: Stroke Review of Systems Constitutional: Reports: Chills, Fever, Malaise, Fatigue. Denies: Anorexia, Night Sweats, Weakness, Weight Change Eyes: Denies: Vision Change HEENT: Denies: Difficulty Swallowing, Nasal Congestion, Post Nasal Drip, Sinus Congestion, Sinus Drainage, Sore Throat Cardiovascular: Reports: Chest Pain - Left-sided, severe with movement. Denies: Edema, Light Headedness, Orthopnea, Palpitations, Paroxysmal Noc. Dyspnea, Syncope Respiratory: Reports: Cough - Productive, Pleuritic Pain, Shortness of breath upon exertion, Sputum production, Wheezing - Intermittent. Denies: Hemoptysis Gastrointestinal: Reports: Nausea. Denies: Abdominal Pain, Constipation, Diarrhea, Dyspepsia, Hematemesis, Hematochezia, Melena, Vomiting Genitourinary: Denies: Dysuria, Frequency, Hematuria, Retention Gynecological: Denies: Breast symptoms Musculoskeletal: Reports: - - Left-sided chest/rib pain with movement or coughing Skin: Denies: Rash, Wounds Neurological: Denies: Balance problems, Change in Speech, Confusion, Focal weakness, Numbness, Tingling, Tremor, Seizures Psychiatric: Reports: Depression. Denies: Anxiety Endocrine: Denies: Change in Body Habitus, Polydipsia, Polyuria Hematologic/ Lymphatic: Reports: Anemia, Easy Bruising. Denies: Adenopathy, Easy Bleeding, Hx of blood clot Patient Problems: Active and Suspected Problems Shortness of breath (Acute) Left sided chest pain (Acute) Productive cough (Acute) COPD with acute exacerbation (Acute) Subjective: The patient seen and examined, she is lying on her right side and appears to be in no acute distress. She is painful to her left lateral chest wall with movement rating about an 8-10 and describes it as sharp/stabbing. Patient reports significant subjective improvement in her cough and shortness of breath. She was having copious amounts of sputum production at home and since she has been here, she is only coughed up some yellow sputum once. She denies any shortness of breath at rest, does have some dyspnea on exertion. She is currently maintaining her saturations on 2 L of oxygen. Objective: Clinical Impression(s) from Imaging Studies Chest X-Ray 11/11/17 04:15 IMPRESSION: Pneumonia in the lingula and left lower lobe. Electronically Signed: Caron Velazco MD at 5:18 EST Tel , Service support , Chest CTA 11/11/17 05:01 IMPRESSION: No demonstrated pulmonary embolism or arterial dissection. Left upper lobe and lingula pneumonia Electronically Signed: Caron Velazco MD at 7:35 EST Tel , Service support , - Physical Exam General: Alert, Oriented x3, Cooperative, No apparent distress, Well developed, Well nourished HEENT: Atraumatic, Normocephalic Oral: Moist Mucosa, No Gingival or Mucosal Lesions/ Ulcerations Neck: Supple, No Nodes, Trachea Midline Lungs: Diminished, - - Faint rales to the left posterior kim, very diminished throughout. No appreciable rhonchi or wheezing. No tachypnea Cardiovascular: Regular rate, Regular Rhythm, Normal S1, Normal S2, No murmurs, No rub noted, No Gallop Abdomen: Bowel Sounds Present, Soft, Non Tender, Non-Distended Extremities: No clubbing, No cyanosis, No edema, Capillary Refill Less than 3 Seconds, No Calf Tenderness Skin: No rashes, No breakdown Musculoskeletal: No Tenderness to Palpation of Joints or Extremities Lymphatic: No Cervical, Supraclavicular, or Inguinal Adenopathy Neurological: Cranial nerves II-XII grossly intact, Neuro grossly intact, Motor Exam 5/5 strength throughout Psych/Mental Status: Alert and oriented to time, place, person, mood and affect Vital Signs Temp Pulse Resp BP Pulse Ox 97.1 F L 90 20 H 137/62 H 93 11/11/17 10:14 11/11/17 11:19 11/11/17 10:14 11/11/17 10:14 11/11/17 10:14 Oxygen Flow Rate 2 Oxygen Delivery Method Nasal Cannula Weight: 152 lb 5.431 oz Body Mass Index (BMI) 29.7 Microbiology Past 72 Hours 11/11/17 10:30 Streptococcus pneumoniae Antigen (M - Final Urine, Clean Catch Laboratory Tests Past 24 Hrs 11/11/17 11:03 Hemoglobin A1c Pending Assessment/Plan Active and Suspected Problems Shortness of breath (Acute) Left sided chest pain (Acute) Productive cough (Acute) COPD with acute exacerbation (Acute) RECOMMENDATIONS 1. Wean oxygen supplementation to keep saturations 88-92%. 2. Encourage incentive spirometer use 3. Increase activity as tolerated 4. Continue aerosols 5. Await cultures 6. Continue IV steroids 7. Ambulatory pulse ox prior to discharge 8. Follow-up in the pulmonary clinic within 2 weeks of discharge with SPOUTING INSTALLER, at which time repeat pulmonary function test can be ordered, if necessary. IMPRESSIONS 1. Community-acquired pneumonia She presents with leukocytosis of 14,700. She has no documented fevers here but T high at home was 102.1?F. Patient did have shaking chills which have resolved. Temp currently 97.1?F. Lactate was normal. Her sputum was very copious at home, yellow to green and has significantly improved since admission. CTA of the chest showed left upper lobe and lingula pneumonia. She is currently being treated with IV Levaquin for sputum culture is pending, as well as blood cultures and respiratory panel. Her influenza screen was negative. Strep/Legionella urine negative. Patient currently maintaining her saturations on 2 L of oxygen supplementation. She will require an ambulatory pulse ox prior to discharge. 2. COPD exacerbation Patient diagnosed with COPD per PFTs, last done about a year ago from her primary railway traction line worker Dr. Perez at [facility]. She was placed on IV steroids and bronchodilators with significant improvement in her overall breathing. Continue IV steroids and aerosols. Increase activity as tolerated. Encourage incentive spirometer. She is not currently having much wheezing, but still is dyspneic on exertion. See #1. Patient wishes to follow-up in the pulmonary clinic as this is closer to home and she does not like traveling anymore. Please arrange a follow-up appointment with the SPOUTING INSTALLER within 2 weeks of discharge. Ideally, the patient should have repeat pulmonary function tests at that time if her infection has cleared. Of note, the patient did have a sleep study which was reportedly negative for any sleep disorders. 3. History of gastric cancer s/p partial gastrectomy/diverticulosis/aortic valve replacement/CAD s/p CABG Complicates care, management, recovery, and prognosis. Thank you for the opportunity to participate in this patient's care, please do not hesitate to contact us with any further questions or concerns. This note was generated with [employer] dictation software. It may contain incorrect words, spelling, and punctuation that were not noted in checking the note before signing.
--- NOTE | 2017-11-11 11:42 | CON.PCM_ITS ---
Problem List (1) COPD with acute exacerbation Status: Acute (2) Left sided chest pain Status: Acute (3) CAD (coronary artery disease) of artery bypass graft Status: Chronic Comment: 10/2016 (4) History of gastric cancer Status: Chronic (5) Diverticulosis Status: Chronic (6) History of partial gastrectomy Status: Chronic (7) H/O aortic valve replacement Status: Chronic Reason for Consult Date of Consultation: 11/11/17 Reason for Consultation: pneumonia, COPD exac History of Present Illness: The patient is a 71 year old F with past medical history as below who presented to the emergency room with complaints of increased shortness of breath, severe left-sided/ sharp chest pain that worsened with cough or deep inspiration, and productive sputum of yellow to green sputum. She had fever and shaking chills the day prior to presentation with a T high of 102.1?F at home. Patient reports she has not been well respiratory shelby since late June after exposure to a sick relative. She has followed up with her primary care physician who has placed her on multiple antibiotics and steroid bursts. Patient reports she typically improves on Levaquin and steroid tapers, however they do not seem to be working anymore. Her chest x-rays reportedly did not show any pneumonia at that time. She last saw her medical consultant, Dr. Perez at [facility] in July and she was switched from Breo back to Advair secondary to unchanged shortness of breath. She has been on multiple other inhalers, including Spiriva. She does also take PRN albuterol and Combivent twice daily. She believes her last pulmonary function tests were just prior to her open heart surgery in October 2016. She was told she had COPD. She has never required any home oxygen supplementation. Patient does note that her father had tuberculosis when she was a child and he was in a sanitarium for quite some time, the children apparently were tested with no evidence of TB. [place] and said she is sure she had other exposures. She denies any exposure to asbestos. 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 She denies any recent weight loss, night sweats, or hemoptysis. Initial vital signs BP 119/68, pulse 102, RR 20, 97.7?F, and 90% on room air. Blood work showed an elevated white count of 14,700 with left shift, normal hemoglobin. Chemistry remarkable for elevated creatinine of 1.11 and glucose of 178. Lactate, magnesium, troponin, and BNP all normal. Chest x-ray 11/09 showed ill-defined groundglass glass opacities left lung base suggesting pneumonia in the lingula and left lower lobe. No pleural abnormality. CTA of the chest performed secondary to concern for pulmonary embolus with her severe left sided chest pain, showed no demonstrated PE or dissection, positive for left upper lobe and lingula pneumonia. There is emphysematous changes in both lungs, predominantly centrilobular type with more prominence in upper lobes. Patient also reports she had a CT of the chest done in [place] sometime maybe last year that showed a right pulmonary nodule in the upper lung measuring 3mm, which has been followed with serial CTs, next scheduled in March 2018. There was no evidence of a nodule on CTA. Urine strep/Legionella antigens were negative. Influenza negative. Blood cultures and sputum culture are pending, well as respiratory panel. The patient was admitted to the medical surgical floor for further management. Patient had a heart catheterization at [facility] in [place] on 04/26/15 that showed 40% stenosis in the ostial circumflex with patent stents proximally , mild RCA with 50% PL branch, minimal , and mild LAD disease. Recommendations were for noncardiac chest pain evaluation at that time. Spoke with Dr. Boo, who is the hospitalist seeing the patient today and she believes she has a rib out of place on the left side, which could explain her chest discomfort. She plans on manipulating the dislocated rib after administering muscle relaxants. Dr. Boo has requested records from Dr. Perez's office and from [place]. Past Medical History Past Medical History (Chronic Problems): Chronic Problems History of gastric cancer (Chronic) Diverticulosis (Chronic) History of partial gastrectomy (Chronic) H/O aortic valve replacement (Chronic) CAD (coronary artery disease) of artery bypass graft (Chronic) 10/2016 Allergies Sulfa (Sulfonamide Antibiotics) Allergy (Verified 11/11/17 03:54) Rash carbamazepine [From Tegretol] Adverse Reaction (Verified 11/11/17 03:54) liver damage famotidine [From Pepcid] Adverse Reaction (Verified 11/11/17 03:54) hair loss ivp dye Allergy (Uncoded 11/11/17 03:54) Hives Home Medications: Ambulatory Orders Medication Instructions Recorded Aspirin [Aspirin, Baby] 81 mg PO BID 10/08/16 Ipratropium/Albuterol Respimat 1 puff INHALATION BID 10/08/16 [Combivent Respimat Inhal Tillson] Metoprolol Tartrate [Lopressor 50 mg PO BID 10/08/16 (beta gila)] Pantoprazole Sodium [Protonix] 40 mg PO DAILY 10/08/16 Rosuvastatin Calcium [Crestor] 20 mg PO QHS 10/08/16 Valsartan [Diovan] 80 mg PO BID 10/08/16 Amlodipine [Norvasc] 2.5 mg PO DAILY 11/11/17 Fluticasone/Salmeterol [Advair 1 puff INHALATION BID 11/11/17 250/50 Mcg Diskus] Hydrochlorothiazide [Hctz] 25 mg PO DAILY 11/11/17 Montelukast [Singulair] 10 mg PO DAILY 11/11/17 Surgical History: cataract, cholecystectomy, coronary bypass surgery, herniorrhaphy, - - Partial gastrectomy secondary to gastric cancer in 2011, neurostimulator implant left arm due to cut radial nerve, partial colon resection secondary to diverticulitis, bioprosthetic aortic valve, coronary artery stents Psychiatric History: No pertinent psych hx PLATFORM LOADER History: No pertinent PLATFORM LOADER history Lives: Spouse/ Significant Other Smoking Status: Former smoker - [id number]-jaxs history, quit 10/2016 Tobacco Use: Non-smoker Alcohol: Rare Drugs: None - *Family History Maternal History Items: Diabetes, - - aneurysm Paternal History Items: Stroke Review of Systems Constitutional: Reports: Chills, Fever, Malaise, Fatigue. Denies: Anorexia, Night Sweats, Weakness, Weight Change Eyes: Denies: Vision Change HEENT: Denies: Difficulty Swallowing, Nasal Congestion, Post Nasal Drip, Sinus Congestion, Sinus Drainage, Sore Throat Cardiovascular: Reports: Chest Pain - Left-sided, severe with movement. Denies : Edema, Light Headedness, Orthopnea, Palpitations, Paroxysmal Noc. Dyspnea, Syncope Respiratory: Reports: Cough - Productive, Pleuritic Pain, Shortness of breath upon exertion, Sputum production, Wheezing - Intermittent. Denies: Hemoptysis Gastrointestinal: Reports: Nausea. Denies: Abdominal Pain, Constipation, Diarrhea, Dyspepsia, Hematemesis, Hematochezia, Melena, Vomiting Genitourinary: Denies: Dysuria, Frequency, Hematuria, Retention Gynecological: Denies: Breast symptoms Musculoskeletal: Reports: - - Left-sided chest/rib pain with movement or coughing Skin: Denies: Rash, Wounds Neurological: Denies: Balance problems, Change in Speech, Confusion, Focal weakness, Numbness, Tingling, Tremor, Seizures Psychiatric: Reports: Depression. Denies: Anxiety Endocrine: Denies: Change in Body Habitus, Polydipsia, Polyuria Hematologic/ Lymphatic: Reports: Anemia, Easy Bruising. Denies: Adenopathy, Easy Bleeding, Hx of blood clot Patient Problems: Active and Suspected Problems Shortness of breath (Acute) Left sided chest pain (Acute) Productive cough (Acute) COPD with acute exacerbation (Acute) Subjective: The patient seen and examined, she is lying on her right side and appears to be in no acute distress. She is painful to her left lateral chest wall with movement rating about an 8-10 and describes it as sharp/stabbing. Patient reports significant subjective improvement in her cough and shortness of breath. She was having copious amounts of sputum production at home and since she has been here, she is only coughed up some yellow sputum once. She denies any shortness of breath at rest, does have some dyspnea on exertion. She is currently maintaining her saturations on 2 L of oxygen. Objective: Clinical Impression(s) from Imaging Studies Chest X-Ray 11/11/17 04:15 IMPRESSION: Pneumonia in the lingula and left lower lobe. Electronically Signed: Caron Velazco MD at 5:18 EST Tel , Service support , Chest CTA 11/11/17 05:01 IMPRESSION: No demonstrated pulmonary embolism or arterial dissection. Left upper lobe and lingula pneumonia Electronically Signed: Caron Velazco MD at 7:35 EST Tel , Service support , - Physical Exam General: Alert, Oriented x3, Cooperative, No apparent distress, Well developed, Well nourished HEENT: Atraumatic, Normocephalic Oral: Moist Mucosa, No Gingival or Mucosal Lesions/ Ulcerations Neck: Supple, No Nodes, Trachea Midline Lungs: Diminished, - - Faint rales to the left posterior kim, very diminished throughout. No appreciable rhonchi or wheezing. No tachypnea Cardiovascular: Regular rate, Regular Rhythm, Normal S1, Normal S2, No murmurs, No rub noted, No Gallop Abdomen: Bowel Sounds Present, Soft, Non Tender, Non-Distended Extremities: No clubbing, No cyanosis, No edema, Capillary Refill Less than 3 Seconds, No Calf Tenderness Skin: No rashes, No breakdown Musculoskeletal: No Tenderness to Palpation of Joints or Extremities Lymphatic: No Cervical, Supraclavicular, or Inguinal Adenopathy Neurological: Cranial nerves II-XII grossly intact, Neuro grossly intact, Motor Exam 5/5 strength throughout Psych/Mental Status: Alert and oriented to time, place, person, mood and affect Vital Signs Temp Pulse Resp BP Pulse Ox 97.1 F L 90 20 H 137/62 H 93 11/11/17 10:14 11/11/17 11:19 11/11/17 10:14 11/11/17 10:14 11/11/17 10:14 Oxygen Flow Rate 2 Oxygen Delivery Method Nasal Cannula Weight: 152 lb 5.431 oz Body Mass Index (BMI) 29.7 Microbiology Past 72 Hours 11/11/17 10:30 Streptococcus pneumoniae Antigen (M - Final Urine, Clean Catch Laboratory Tests Past 24 Hrs 11/11/17 11:03 Hemoglobin A1c Pending Assessment/Plan Active and Suspected Problems Shortness of breath (Acute) Left sided chest pain (Acute) Productive cough (Acute) COPD with acute exacerbation (Acute) RECOMMENDATIONS 1. Wean oxygen supplementation to keep saturations 88-92%. 2. Encourage incentive spirometer use 3. Increase activity as tolerated 4. Continue aerosols 5. Await cultures 6. Continue IV steroids 7. Ambulatory pulse ox prior to discharge 8. Follow-up in the pulmonary clinic within 2 weeks of discharge with [facility], at which time repeat pulmonary function test can be ordered, if necessary. IMPRESSIONS 1. Community-acquired pneumonia She presents with leukocytosis of 14,700. She has no documented fevers here but T high at home was 102.1?F. Patient did have shaking chills which have resolved. Temp currently 97.1?F. Lactate was normal. Her sputum was very copious at home, yellow to green and has significantly improved since admission. CTA of the chest showed left upper lobe and lingula pneumonia. She is currently being treated with IV Levaquin for sputum culture is pending, as well as blood cultures and respiratory panel. Her influenza screen was negative. Strep/Legionella urine negative. Patient currently maintaining her saturations on 2 L of oxygen supplementation. She will require an ambulatory pulse ox prior to discharge. 2. COPD exacerbation Patient diagnosed with COPD per PFTs, last done about a year ago from her primary medical consultant Dr. Perez at [facility]. She was placed on IV steroids and bronchodilators with significant improvement in her overall breathing. Continue IV steroids and aerosols. Increase activity as tolerated. Encourage incentive spirometer. She is not currently having much wheezing, but still is dyspneic on exertion. See #1. Patient wishes to follow-up in the pulmonary clinic as this is closer to home and she does not like traveling anymore. Please arrange a follow-up appointment with the G[facility] B[facility] OPERATOR within 2 weeks of discharge. Ideally, the patient should have repeat pulmonary function tests at that time if her infection has cleared. Of note, the patient did have a sleep study which was reportedly negative for any sleep disorders. 3. History of gastric cancer s/p partial gastrectomy/diverticulosis/aortic valve replacement/CAD s/p CABG Complicates care, management, recovery, and prognosis. Thank you for the opportunity to participate in this patient's care, please do not hesitate to contact us with any further questions or concerns. This note was generated with [employer] dictation software. It may contain incorrect words, spelling, and punctuation that were not noted in checking the note before signing.
[2017-11-11 11:57] LABS: Hemoglobin A1c 6.4 % (4.2-6.3)
[2017-11-11] MEDS: 0.9% Normal Saline 1,000 ML 100 ML IV (14:03)
--- NOTE | 2017-11-11 17:49 | CASEMGMT ---
See RN CM Assessment. Pt reportedly independent, no needs identified except to evaluate for Home oxygen closer to dc. Iram BSN RN ACM
[2017-11-11] MEDS: amLODIPine 2.5 MG Tablet PO (21:05)
[2017-11-11] MEDS: Acetaminophen 325 MG Tablet 650 MG PO (21:05)
[2017-11-11] MEDS: Atorvastatin Calcium 40 MG Tablet PO (21:05)
[2017-11-12] VITALS (11 sets, daily range): BP systolic 146–162; BP diastolic 65–83; PULSE 80–92; RESP 12–18; TEMP 36.2–36.6; O2SAT 93–97
[2017-11-12] MEDS: 0.9% Normal Saline 1,000 ML 100 ML IV (00:11)
[2017-11-12] MEDS: Acetaminophen 325 MG Tablet 650 MG PO ×2 (03:28→21:05)
[2017-11-12] MEDS: Ipratropium/Albuterol Sulfate 3 ML AMPUL.NEB INHALATION ×5 (03:29→23:34)
--- NOTE | 2017-11-12 05:59 | RAD_ITS ---
STUDY: X-RAY CHEST REASON FOR EXAM: Female, 71 years old. Shortness of breath/dyspnea. TECHNIQUE: PA and lateral views of the chest. COMPARISON: Comparison is made with prior examination dated November 11, 2017. FINDINGS: Since prior study, there has been progressive increase interstitial markings with coalescence in both lower lobes worse on the left side. Blunting of the costophrenic angles posteriorly. Sternal cerclage wires are present from a prior sternotomy. The patient is status post aortic valve replacement and coronary stenting. A left-sided pacing device is seen. Normal mediastinum and tj. Normal visualized pulmonary arteries. There is atherosclerotic calcification of the aortic arch with tortuosity. There is demineralization of the osseous structures. Normal visualized ribs, clavicles, and shoulders. There is no demonstrated abnormality of the visualized soft tissue structures of the upper abdomen. RAD/Chest PA and Lateral IMPRESSION: Progressive increased interstitial markings in both lungs suggestive of possible CHF superimposed on chronic scarring. Blunting of both costophrenic angles posteriorly. Electronically Signed: José Miguel Rome MD at 13:49 EST Tel [phone], Service support ,
[2017-11-12] MEDS: 0.9% NaCl Peripheral Flush Adult/Peds IV ×3 (06:10→21:05)
--- NOTE | 2017-11-12 07:40 | PCA ---
pt off floor
--- NOTE | 2017-11-12 08:12 | PCM.PROGNOTE ---
Subjective: Afebrile since admission. Blood pressure is mildly elevated today. Pulse ox is 93-95% at rest on 2 L nasal cannula. Hemoglobin A1c is 6.4. Respiratory panel is positive for adenovirus. Strep and Legionella antigens were negative. Blood cultures and sputum culture are pending. Influenza swab was negative. CXR today appears to have infiltrate in the R base as well today I have reviewed pulmonary consult and appreciate input. Still feeling very fatigued and sleeping a lot. Not coughing as much and the cough is dry No N/V/shaking chills - Physical Exam General: Alert, Oriented x3, Cooperative HEENT: Atraumatic Oral: Moist Mucosa Lungs: Diminished, Wheezes - rare expiratory wheeze. Air exchange is improved today and although the lungs are diminished it is less today Cardiovascular: Regular rate, Regular Rhythm, Normal S1, Normal S2, No Gallop Abdomen: Bowel Sounds Present, Soft, Non Tender, Non-Distended Extremities: No clubbing, No cyanosis, No edema Skin: No rashes Psych/Mental Status: Normal Affect, Appropriate Vital Signs Temp Pulse Resp BP Pulse Ox 97.6 F L 92 18 153/83 H 93 11/12/17 03:15 11/12/17 07:07 11/12/17 07:07 11/12/17 03:15 11/12/17 07:07 Oxygen Flow Rate 2 Oxygen Delivery Method Nasal Cannula Weight: 152 lb 5.431 oz Body Mass Index (BMI) 29.7 Intake and Output for Last 24 Hours 11/10/17 11/11/17 11/12/17 23:59 23:59 23:59 Intake Total 727 / 727 2470 / 2470 Output Total 200 / 200 Balance 527 / 527 2470 / 2470 Microbiology Past 72 Hours 11/11/17 11:21 Respiratory Panel (PCR) - Final Mucosa - Nose Adenovirus 11/11/17 10:45 Gram Stain - Final Sputum, Expectorated/Coughed 11/11/17 10:30 Legionella Antigen - Final Urine, Clean Catch 11/11/17 10:30 Streptococcus pneumoniae Antigen (M - Final Urine, Clean Catch Laboratory Tests Past 24 Hrs 11/11/17 11:03 Hemoglobin A1c 6.4 H Assessment/Plan Impressions 1. community acquired PNA - viral due to adenovirus 2. acute exacerbation COPD due to adenovirus 3. L chest pain secondary to rib dysfunction - S/P osteopathic rib correct....pain is much better today 4. COPD 5. hx of Gastric CA with partial gastrectomy 6. partial colon resection for diverticular disease 7. bioprosthetic AVR in October of 2016 8. Former smoker - quit in October of 2016 9. CAD with hx of CABG and PCI with stents 10. Hypertension 11. GERD 12. elevated creat likely prerenal....HCTZ is on hold and she is going to get 2 liters of IV fluids 13. hyperglycemia - no recent steroids and no hx of DM II 14. overweight 15. hx of a pulmonary nodule found on a CT scan of the chest done at [facility] in August of 2017. Not demonstrated on CT done at [facility]. Continue the current treatment plan DC the Levaquin and use 3 days of Azithromycin for COPD exacerbation to decrease risk for bacterial superinfection She has decided to follow up with Dr. Winston as an OP HGBAC is borderline at 6.4....diet changes discussed with her Code Visit Inpatient E&M: 73452 Subs Hosp L2
--- NOTE | 2017-11-12 09:35 | PCM.PROGNOTE ---
Patient Problems: Active and Suspected Problems Shortness of breath (Acute) Left sided chest pain (Acute) Productive cough (Acute) COPD with acute exacerbation (Acute) Subjective: The patient was seen and examined at the bedside this morning. Events from the last 24 hours have been reviewed. The patient is currently afebrile, hemodynamically stable and maintaining appropriate oxygen saturations on 2 L/min via nasal cannula. She continues to endorse the presence of a cough and shortness of breath. Objective: The patient's most recent lab work, culture data and imaging studies have all been personally reviewed. Respiratory viral panel was positive for adenovirus. Expectorated sputum culture is pending. Strep and urine Legionella antigens were both negative. Blood cultures have shown no growth to date. Rapid influenza screen was negative. CTA chest revealed no evidence for PE. However, there was evidence of upper lobe predominant emphysematous changes and vague airspace disease within the lingula and left upper lobe. - Physical Exam General: Alert, Oriented x3, Cooperative, No apparent distress HEENT: Atraumatic, PERRLA, Normocephalic Oral: Moist Mucosa, No Gingival or Mucosal Lesions/ Ulcerations Neck: Supple, No Nodes, Trachea Midline Lungs: - - Lung kim remain globally diminished bilaterally with faint basilar rales present Cardiovascular: Regular rate, Regular Rhythm, Normal S1, Normal S2, No murmurs Abdomen: Bowel Sounds Present, Soft, Non Tender, Non-Distended Extremities: No clubbing, No cyanosis, No edema Skin: No rashes, No breakdown Musculoskeletal: No Tenderness to Palpation of Joints or Extremities, No Muscle Wasting Lymphatic: No Cervical, Supraclavicular, or Inguinal Adenopathy Neurological: Neuro grossly intact Psych/Mental Status: Normal Affect, Appropriate Vital Signs Temp Pulse Resp BP Pulse Ox 97.6 F L 92 18 153/83 H 93 11/12/17 03:15 11/12/17 07:07 11/12/17 07:07 11/12/17 03:15 11/12/17 07:07 Oxygen Flow Rate 2 Oxygen Delivery Method Nasal Cannula Weight: 152 lb 5.431 oz Body Mass Index (BMI) 29.7 Intake and Output for Last 24 Hours 11/10/17 11/11/17 11/12/17 23:59 23:59 23:59 Intake Total 727 / 727 2470 / 2470 Output Total 200 / 200 Balance 527 / 527 2470 / 2470 Microbiology Past 72 Hours 11/11/17 11:21 Respiratory Panel (PCR) - Final Mucosa - Nose Adenovirus 11/11/17 10:45 Gram Stain - Final Sputum, Expectorated/Coughed 11/11/17 10:30 Legionella Antigen - Final Urine, Clean Catch 11/11/17 10:30 Streptococcus pneumoniae Antigen (M - Final Urine, Clean Catch Laboratory Tests Past 24 Hrs 11/11/17 11:03 Hemoglobin A1c 6.4 H Clinical Impression(s) from Imaging Studies Chest X-Ray 11/11/17 04:15 IMPRESSION: Pneumonia in the lingula and left lower lobe. Electronically Signed: Caron Velazco MD at 5:18 EST Tel , Service support , Chest CTA 11/11/17 05:01 IMPRESSION: No demonstrated pulmonary embolism or arterial dissection. Left upper lobe and lingula pneumonia Electronically Signed: Caron Velazco MD at 7:35 EST Tel , Service support , Assessment/Plan Active and Suspected Problems Shortness of breath (Acute) Left sided chest pain (Acute) Productive cough (Acute) COPD with acute exacerbation (Acute) RECOMMENDATIONS: 1. Continue scheduled aerosol regimen 2. Continue antibiotics as ordered 3. Transition from IV steroids to prednisone 40 mg daily 4. Continue Singulair 5. Perform walking oximetry study 6. Encourage incentive spirometer use and mobilize patient as tolerated 7. The patient needs to be scheduled with our nurse practitioner in the pulmonary medicine clinic within 2 weeks of her discharge from the hospital IMPRESSIONS: 1. Acute hypoxemic respiratory insufficiency, likely secondary to COPD exacerbation due to community-acquired pneumonia/adenovirus URI Continue current measures including scheduled aerosol treatments, steroids and antibiotics, pending infectious workup. Wean supplemental oxygen to maintain saturations at or above 90%. Encourage aggressive incentive spirometer use and mobilize patient as tolerated. The patient is requesting to have her current pulmonary care transferred here to [facility]. Please ensure that the patient has a follow-up appointment scheduled with our nurse practitioner within 2 weeks of her discharge from the hospital. We can obtain her outside pulmonary records at that time. Would also plan to perform a walking oximetry study prior to consideration for discharge from the hospital. The patient's IV steroids can be transitioned to prednisone 40 mg daily by mouth, beginning today. 2. History of gastric cancer status post partial gastrectomy/diverticulosis/aortic valve replacement/coronary artery disease status post CABG Complicates care, management, recovery and prognosis. Continue home medications as indicated. This note was generated with [employer] dictation software. It may contain incorrect words, spelling, and punctuation that were not noted in checking the note before signing. Code Visit Inpatient E&M: 44600 Subs Hosp L2
--- NOTE | 2017-11-12 09:38 | PN_ITS ---
Patient Problems: Active and Suspected Problems Shortness of breath (Acute) Left sided chest pain (Acute) Productive cough (Acute) COPD with acute exacerbation (Acute) Subjective: The patient was seen and examined at the bedside this morning. Events from the last 24 hours have been reviewed. The patient is currently afebrile, hemodynamically stable and maintaining appropriate oxygen saturations on 2 L/ min via nasal cannula. She continues to endorse the presence of a cough and shortness of breath. Objective: The patient's most recent lab work, culture data and imaging studies have all been personally reviewed. Respiratory viral panel was positive for adenovirus. Expectorated sputum culture is pending. Strep and urine Legionella antigens were both negative. Blood cultures have shown no growth to date. Rapid influenza screen was negative. CTA chest revealed no evidence for PE. However, there was evidence of upper lobe predominant emphysematous changes and vague airspace disease within the lingula and left upper lobe. - Physical Exam General: Alert, Oriented x3, Cooperative, No apparent distress HEENT: Atraumatic, PERRLA, Normocephalic Oral: Moist Mucosa, No Gingival or Mucosal Lesions/ Ulcerations Neck: Supple, No Nodes, Trachea Midline Lungs: - - Lung kim remain globally diminished bilaterally with faint basilar rales present Cardiovascular: Regular rate, Regular Rhythm, Normal S1, Normal S2, No murmurs Abdomen: Bowel Sounds Present, Soft, Non Tender, Non-Distended Extremities: No clubbing, No cyanosis, No edema Skin: No rashes, No breakdown Musculoskeletal: No Tenderness to Palpation of Joints or Extremities, No Muscle Wasting Lymphatic: No Cervical, Supraclavicular, or Inguinal Adenopathy Neurological: Neuro grossly intact Psych/Mental Status: Normal Affect, Appropriate Vital Signs Temp Pulse Resp BP Pulse Ox 97.6 F L 92 18 153/83 H 93 11/12/17 03:15 11/12/17 07:07 11/12/17 07:07 11/12/17 03:15 11/12/17 07:07 Oxygen Flow Rate 2 Oxygen Delivery Method Nasal Cannula Weight: 152 lb 5.431 oz Body Mass Index (BMI) 29.7 Intake and Output for Last 24 Hours 11/10/17 11/11/17 11/12/17 23:59 23:59 23:59 Intake Total 727 / 727 2470 / 2470 Output Total 200 / 200 Balance 527 / 527 2470 / 2470 Microbiology Past 72 Hours 11/11/17 11:21 Respiratory Panel (PCR) - Final Mucosa - Nose Adenovirus 11/11/17 10:45 Gram Stain - Final Sputum, Expectorated/Coughed 11/11/17 10:30 Legionella Antigen - Final Urine, Clean Catch 11/11/17 10:30 Streptococcus pneumoniae Antigen (M - Final Urine, Clean Catch Laboratory Tests Past 24 Hrs 11/11/17 11:03 Hemoglobin A1c 6.4 H Clinical Impression(s) from Imaging Studies Chest X-Ray 11/11/17 04:15 IMPRESSION: Pneumonia in the lingula and left lower lobe. Electronically Signed: Caron Velazco MD at 5:18 EST Tel , Service support , Chest CTA 11/11/17 05:01 IMPRESSION: No demonstrated pulmonary embolism or arterial dissection. Left upper lobe and lingula pneumonia Electronically Signed: Caron Velazco MD at 7:35 EST Tel , Service support , Assessment/Plan Active and Suspected Problems Shortness of breath (Acute) Left sided chest pain (Acute) Productive cough (Acute) COPD with acute exacerbation (Acute) RECOMMENDATIONS: 1. Continue scheduled aerosol regimen 2. Continue antibiotics as ordered 3. Transition from IV steroids to prednisone 40 mg daily 4. Continue Singulair 5. Perform walking oximetry study 6. Encourage incentive spirometer use and mobilize patient as tolerated 7. The patient needs to be scheduled with our nurse practitioner in the pulmonary medicine clinic within 2 weeks of her discharge from the hospital IMPRESSIONS: 1. Acute hypoxemic respiratory insufficiency, likely secondary to COPD exacerbation due to community-acquired pneumonia/adenovirus URI Continue current measures including scheduled aerosol treatments, steroids and antibiotics, pending infectious workup. Wean supplemental oxygen to maintain saturations at or above 90%. Encourage aggressive incentive spirometer use and mobilize patient as tolerated. The patient is requesting to have her current pulmonary care transferred here to [facility]. Please ensure that the patient has a follow-up appointment scheduled with our nurse practitioner within 2 weeks of her discharge from the hospital. We can obtain her outside pulmonary records at that time. Would also plan to perform a walking oximetry study prior to consideration for discharge from the hospital. The patient's IV steroids can be transitioned to prednisone 40 mg daily by mouth , beginning today. 2. History of gastric cancer status post partial gastrectomy/diverticulosis/ aortic valve replacement/coronary artery disease status post CABG Complicates care, management, recovery and prognosis. Continue home medications as indicated. This note was generated with [employer] dictation software. It may contain incorrect words, spelling, and punctuation that were not noted in checking the note before signing. Code Visit Inpatient E&M: 60969 Subs Hosp L2
[2017-11-12] MEDS: Pantoprazole Sodium 40 MG Tablet PO (11:26)
[2017-11-12] MEDS: Metoprolol Tartrate 50 MG Tablet PO ×2 (11:26→21:05)
[2017-11-12] MEDS: Montelukast 10 MG Tablet PO (11:26)
[2017-11-12] MEDS: Azithromycin 250 MG Tablet 500 MG PO (11:27)
[2017-11-12] MEDS: Aspirin 81 MG TAB.CHEW PO ×2 (11:27→17:52)
[2017-11-12] MEDS: amLODIPine 2.5 MG Tablet PO (21:05)
[2017-11-12] MEDS: Atorvastatin Calcium 40 MG Tablet PO (21:08)
[2017-11-13] VITALS (14 sets, daily range): BP systolic 154–170; BP diastolic 81–91; PULSE 80–84; RESP 16–20; TEMP 35.8–36.5; O2SAT 79–97
[2017-11-13] MEDS: 0.9% NaCl Peripheral Flush Adult/Peds IV (05:59)
--- NOTE | 2017-11-13 06:09 | NURSING ---
Walking pulse ox completed. Patient 94 on 1L of O2. Resting on edge of bed with no O2 pulse ox 90%. Walked to nurses station and dropped to lowest of 79%. Patient reports she did no feel SOB or dizzy. Returned to room and recovered quickly with 1L supplementary O2.
[2017-11-13] MEDS: Ipratropium/Albuterol Sulfate 3 ML AMPUL.NEB INHALATION ×3 (07:31→15:40)
[2017-11-13] MEDS: Aspirin 81 MG TAB.CHEW PO ×2 (08:57→16:35)
[2017-11-13] MEDS: Azithromycin 250 MG Tablet 500 MG PO (08:58)
[2017-11-13] MEDS: Pantoprazole Sodium 40 MG Tablet PO (08:58)
[2017-11-13] MEDS: Montelukast 10 MG Tablet PO (08:58)
[2017-11-13] MEDS: Metoprolol Tartrate 50 MG Tablet PO (08:58)
--- NOTE | 2017-11-13 09:59 | PN_ITS ---
Patient Problems: Active and Suspected Problems Shortness of breath (Acute) Left sided chest pain (Acute) Productive cough (Acute) COPD with acute exacerbation (Acute) Subjective: The patient was seen and examined at the bedside this morning. Events from the last 24 hours have been reviewed. The patient is currently afebrile, hemodynamically stable and maintaining appropriate oxygen saturations on 2 L/ min via nasal cannula. She does report some interval improvement, but continues to endorse exertional dyspnea. The patient reports that she was previously prescribed Advair and Combivent on an outpatient basis. She reports that she was using Combivent as a rescue inhaler and did not have access to an albuterol inhaler. Objective: The patient's most recent lab work, culture data and imaging studies have all been personally reviewed. Respiratory viral panel was positive for adenovirus. Expectorated sputum culture is pending. Strep and urine Legionella antigens were both negative. Blood cultures have shown no growth to date. Rapid influenza screen was negative. CTA chest revealed no evidence for PE. However, there was evidence of upper lobe predominant emphysematous changes and vague airspace disease within the lingula and left upper lobe. - Physical Exam General: Alert, Cooperative, No apparent distress HEENT: Atraumatic, PERRLA, Normocephalic Oral: Moist Mucosa, No Gingival or Mucosal Lesions/ Ulcerations Neck: Supple, No Nodes, Trachea Midline Lungs: No rhonchi, No wheeze, Diminished, Rales Cardiovascular: Regular rate, Regular Rhythm, Normal S1, Normal S2, No murmurs Abdomen: Bowel Sounds Present, Soft, Non Tender, Non-Distended Extremities: No clubbing, No cyanosis, No edema Skin: No rashes, No breakdown Musculoskeletal: No Tenderness to Palpation of Joints or Extremities, No Muscle Wasting Lymphatic: No Cervical, Supraclavicular, or Inguinal Adenopathy Neurological: Neuro grossly intact Psych/Mental Status: Alert and oriented to time, place, person, mood and affect Vital Signs Temp Pulse Resp BP Pulse Ox 96.5 F L 84 20 H 170/91 H 93 11/13/17 08:53 11/13/17 08:58 11/13/17 09:22 11/13/17 08:58 11/13/17 08:53 Oxygen Flow Rate 2 Oxygen Delivery Method Nasal Cannula Weight: 152 lb 5.431 oz Body Mass Index (BMI) 29.7 Intake and Output for Last 24 Hours 11/11/17 11/12/17 11/13/17 23:59 23:59 23:59 Intake Total 727 / 727 2470 / 2470 1310 / 1310 Output Total 200 / 200 Balance 527 / 527 2470 / 2470 1310 / 1310 Microbiology Past 72 Hours 11/11/17 11:21 Respiratory Panel (PCR) - Final Mucosa - Nose Adenovirus 11/11/17 10:45 Gram Stain - Final Sputum, Expectorated/Coughed 11/11/17 10:30 Legionella Antigen - Final Urine, Clean Catch 11/11/17 10:30 Streptococcus pneumoniae Antigen (M - Final Urine, Clean Catch Labs (Last 48 Hours) 11/11/17 11/11/17 03:55 11:03 Hemoglobin A1c 6.4 H Phosphorus 3.4 Magnesium 2.1 Total Bilirubin 0.60 Direct Bilirubin 0.11 AST 29 ALT 24 Alkaline Phosphatase 104 Total Protein 7.8 Albumin 3.3 Globulin 4.5 H Microbiology 11/11/17 11:21 Mucosa - Nose Respiratory Panel (PCR) - Final Adenovirus 11/11/17 10:45 Sputum, Expectorated/Coughed Gram Stain - Final 11/11/17 10:30 Urine, Clean Catch Legionella Antigen - Final 11/11/17 10:30 Urine, Clean Catch Streptococcus pneumoniae Antigen (M - Final Clinical Impression(s) from Imaging Studies Chest X-Ray 11/11/17 04:15 IMPRESSION: Pneumonia in the lingula and left lower lobe. Electronically Signed: Caron Velazco MD at 5:18 EST Tel , Service support , Chest CTA 11/11/17 05:01 IMPRESSION: No demonstrated pulmonary embolism or arterial dissection. Left upper lobe and lingula pneumonia Electronically Signed: Caron Velazco MD at 7:35 EST Tel , Service support , Chest X-Ray 11/12/17 05:59 IMPRESSION: Progressive increased interstitial markings in both lungs suggestive of possible CHF superimposed on chronic scarring. Blunting of both costophrenic angles posteriorly. Electronically Signed: José Miguel Rome MD at 13:49 EST Tel [phone], Service support , Assessment/Plan Active and Suspected Problems Shortness of breath (Acute) Left sided chest pain (Acute) Productive cough (Acute) COPD with acute exacerbation (Acute) RECOMMENDATIONS: 1. Continue scheduled aerosol regimen 2. Continue antibiotics as ordered 3. Transition from IV steroids to prednisone 40 mg daily 4. Continue Singulair 5. Perform walking oximetry study prior to consideration for discharge in the hospital 6. Encourage incentive spirometer use and mobilize patient as tolerated 7. The patient needs to be scheduled with our nurse practitioner in the pulmonary medicine clinic within 2 weeks of her discharge from the hospital 8. Please discharge patient home with an albuterol metered-dose inhaler to be utilized every 6 hours as needed IMPRESSIONS: 1. Acute hypoxemic respiratory insufficiency, likely secondary to COPD exacerbation due to community-acquired pneumonia/adenovirus URI Continue current measures including scheduled aerosol treatments, steroids and antibiotics. Wean supplemental oxygen to maintain saturations at or above 90%. Encourage aggressive incentive spirometer use and mobilize patient as tolerated. The patient is requesting to have her current pulmonary care transferred here to [facility]. Please ensure that the patient has a follow-up appointment scheduled with our nurse practitioner within 2 weeks of her discharge from the hospital. We can obtain her outside pulmonary records at that time. Would also plan to perform a walking oximetry study prior to consideration for discharge from the hospital. The patient's IV steroids can be transitioned to prednisone 40 mg daily by mouth, beginning today. Plan to complete a steroid taper over the next 12 days upon discharge. 2. History of gastric cancer status post partial gastrectomy/diverticulosis/ aortic valve replacement/coronary artery disease status post CABG Complicates care, management, recovery and prognosis. Continue home medications as indicated. This note was generated with [employer] software. It may contain incorrect words, spelling, and punctuation that were not noted in checking the note before signing. Code Visit Inpatient E&M: 42229 Subs Hosp L2
--- NOTE | 2017-11-13 17:38 | PCM.DC ---
- Discharge Diagnoses Current Active Problems: Current Active and Chronic Problems Shortness of breath (Acute) Left sided chest pain (Acute) Productive cough (Acute) COPD with acute exacerbation (Acute) History of gastric cancer (Chronic) Diverticulosis (Chronic) History of partial gastrectomy (Chronic) H/O aortic valve replacement (Chronic) You will use the following diet at home:: Cardiac - Watch the carbohydrates and try to lose a little weight......you are on the borderline of becoming diabetic. You do not need any medication at this time. Your food should be the consistency of: Regular Your liquids should be the consistency of: Regular/Thin Discharge Activity: - - Avoid exposure to any strong smells such as bleach, cleaning products, strong colognes or perfumes, paint fumes and smoke of any kind. Avoid sudden exposure to cold air because this can cause bronchospasm. You may want to cover your mouth when you go outside in the winter. Avoid exposure to anyone who is sick with a cough or sore throat. Call your doctor if you observe: Fever of 101 or Higher, Shortness of breath, Dizziness, Fainting spells, Chest pain Instructions: Diabetes: Understanding Carbohydrates Additional Instructions: Your blood sugars are a little high. Even before the steroids. Try and control your carbohydrate intake and lose a little weight and you likely will not progress to full blown diabetes. Use the Aerosol machine 4 times a day while awake until you are seen in the pulmonary office in 2 weeks. Do not use the Combivent inhaler because it continues the same medication as the aerosols and the aerosols get better results. I have given you a prescription for an Albuterol inhaler. Use this as a RESCUE inhaler......take it with you when you leave the house in case you start to wheeze or get short of breath. The prednisone will be tapered over the next 2 weeks. You will need to wear the oxygen at 1-2 liters at rest but, increase to 3 liters when you are exerting yourself at all. Take care. It was a pleasure meeting you and your Pending Tests on Discharge: none Allergies/Adverse Reactions: Allergies Sulfa (Sulfonamide Antibiotics) Allergy (Verified 11/11/17 03:54) Rash carbamazepine [From Tegretol] Adverse Reaction (Verified 11/11/17 03:54) liver damage famotidine [From Pepcid] Adverse Reaction (Verified 11/11/17 03:54) hair loss ivp dye Allergy (Uncoded 11/11/17 03:54) Hives Medications to take at Discharge Aspirin [Aspirin, Baby] 81 mg PO BID 10/08/16 Ipratropium/Albuterol Respimat [Combivent Respimat Inhal [place]] 1 puff INHALATION BID 10/08/16 Metoprolol Tartrate [Lopressor (beta gila)] 50 mg PO BID 10/08/16 Pantoprazole Sodium [Protonix] 40 mg PO DAILY 10/08/16 Rosuvastatin Calcium [Crestor] 20 mg PO QHS 10/08/16 Valsartan [Diovan] 80 mg PO BID 10/08/16 Amlodipine [Norvasc] 2.5 mg PO DAILY 11/11/17 Fluticasone/Salmeterol [Advair 250/50 Mcg Diskus] 1 puff INHALATION BID 11/11/17 Hydrochlorothiazide [Hctz] 25 mg PO DAILY 11/11/17 Montelukast [Singulair] 10 mg PO DAILY 11/11/17 Albuterol IH (ProAir) [Proair Hfa] 1 - 2 puff INHALATION Q6H PRN PRN #1 inhaler 11/13/17 Azithromycin [Zithromax] 500 mg PO Q24 #1 tab 11/13/17 Ipratropium/Albuterol Sulfate [Duoneb] 3 ml INHALATION Q4H.RT #120 ampul.neb 11/13/17 Nebulizer [Compact Compressor Nebulizer] 1 ea MC 4X/DAY #1 ea 11/13/17 Prednisone 10 mg PO UD #30 tab 11/13/17 The following prescriptions were given: Ipratropium/Albuterol Sulfate [Duoneb] 3 ml INHALATION Q4H.RT #120 ampul.neb Albuterol IH (ProAir) [Proair Hfa] 1 - 2 puff INHALATION Q6H PRN PRN #1 inhaler PRN Reason: Dyspnea/Wheezing/Sob Azithromycin [Zithromax] 500 mg PO Q24 #1 tab Prednisone 10 mg PO UD #30 tab Nebulizer [Compact Compressor Nebulizer] 1 ea MC 4X/DAY #1 ea Primary Care Physician: Heidy Lowry [Primary Care Provider] - Please follow up with your Primary Care Physician in: when she moves her office to [place] Please Follow Up With: Ryan Winston DO When: 2 weeks Proposed Discharge Date: 11/13/17
--- NOTE | 2017-11-13 17:56 | PCM.DC.SUM ---
Discharge Date and Diagnosis Date of Admission: 11/11/17 Date of Discharge: 11/13/17 - Primary Discharge Diagnosis Active and Suspected Problems Adenovirus pneumonia (Acute) COPD with acute exacerbation (Acute) due to adenovirus Glucose intolerance (Acute) - new diagnosis Somatic dysfunction of rib region (Acute) - left lower ribs - Secondary Discharge Diagnosis Chronic Problems Personal history of solitary pulmonary nodule (Chronic) - seen on a CT from [facility], not demonstrated on CT of chest at [facility] GERD (gastroesophageal reflux disease) (Chronic) Hypertension (Chronic) Diverticulosis (Chronic) History of partial colectomy (Chronic) History of gastric cancer (Chronic) History of partial gastrectomy (Chronic) H/O aortic valve replacement (Chronic) - bioprosthetic CAD (coronary artery disease) of artery bypass graft (Chronic) 10/2016 Hospital Course and Treatment Imaging Results: Clinical Impression(s) from Imaging Studies Chest X-Ray 11/11/17 04:15 IMPRESSION: Pneumonia in the lingula and left lower lobe. Electronically Signed: Caron Velazco MD at 5:18 EST Tel , Service support , Chest CTA 11/11/17 05:01 IMPRESSION: No demonstrated pulmonary embolism or arterial dissection. Left upper lobe and lingula pneumonia Electronically Signed: Caron Velazco MD at 7:35 EST Tel , Service support , Chest X-Ray 11/12/17 05:59 IMPRESSION: Progressive increased interstitial markings in both lungs suggestive of possible CHF superimposed on chronic scarring. Blunting of both costophrenic angles posteriorly. Electronically Signed: José Miguel Rome MD at 13:49 EST Tel [phone], Service support , Microbiology 11/11/17 05:20 Blood Culture (Wb) - Right Hand Blood Culture - Preliminary No growth in 48 hours. 11/11/17 05:20 Blood Culture (Wb) - Right Hand Blood Culture - Preliminary No growth in 48 hours. 11/11/17 10:45 Sputum, Expectorated/Coughed Gram Stain - Final 11/11/17 10:45 Sputum, Expectorated/Coughed Respiratory Culture - Final 11/11/17 11:21 Mucosa - Nose Respiratory Panel (PCR) - Final Adenovirus 11/11/17 10:30 Urine, Clean Catch Legionella Antigen - Final 11/11/17 10:30 Urine, Clean Catch Streptococcus pneumoniae Antigen (M - Final 11/11/17 04:18 Mucosa - Nose Influenza Types A,B Direct FA (ALEXUS) - Final Dr. Ryan Winston-pulmonary medicine Operations: None Procedures: None Summary of Care Provided: Patient is a 71-year-old female with a past medical history of COPD, hypertension, GERD, hyperlipidemia, coronary artery disease with history of CABG, history of gastric cancer with partial gastrectomy in 2011, diverticulosis with history of diverticulitis and partial colon resection, bioprosthetic aortic valve replacement and coronary stents who presented to the emergency room at [facility] on 11/11/2017 complaining of sharp left chest pain, shortness of breath and worsening cough. Cough was productive of yellow and green sputum. She stated her temperature on 11/10/2017 was 102.1. Vital signs at presentation to the emergency room were temperature 97.7, pulse rate 102, blood pressure 119/68, respiratory rate 20 and she was 90% saturated on room air. White blood cell count was elevated at 14.7 with a mild left shift. Electrolytes were within normal limits and the creatinine was 1.11 with a BUN of 18. Creatinine in September 2016 was 0.69. Random glucose was increased at 178 and the lactic acid was 1.8. Lactic acid was 1.8 and the BNP was 90. Chest x-ray to admission showed pneumonia on the left side. The ER physician was concerned about a possible pulmonary embolus because of the sharp left chest pain and a CTA of the chest was ordered and had no PE's but confirmed patchy infiltrates in the left lower lobe and lingula. It also showed extensive emphysematous changes....worse in the upper lobes. Influenza swab was negative and so were the streptococcal and Legionella antigens in the urine. Blood cultures had no growth after 48 hours. A respiratory panel was positive for adenovirus. She was admitted to the hospital with a diagnosis of pneumonia with acute exacerbation of COPD/emphysema. Levaquin was discontinued when the + adenovirus was obtained. Hydrochlorothiazide was discontinued and IV fluids were started. She was started on high dose IV steroids and ATC aerosolized bronchodilators. Consultation was obtained with Dr. Ryan Winston from pulmonary medicine. She was treated with a 3 day course of Azithromycin for acute exacerbation of COPD to decrease risk for a secondary bacterial infection. On 11-29 the temp is 97.6 and the blood pressure was 160/81. The elevation in blood pressures likely secondary to high-dose intravenous steroids. She was transitioned to prednisone. Ambulatory pulse ox showed a PO2 of 82% on room air that increased 88% on a 2 L nasal cannula. She was discharged on home oxygen 1-2 L at rest and 3 L with exertion. She expressed an interest in changing pulmonary physicians and wanted someone in [place]. She is going to follow up with Dr. Winston in 2 weeks. She was discharged on a tapering dose of Prednisone over the next next 12 days. Arrangements for oxygen and a nebulizer were made prior to discharge. She will use Duoneb in the nebulizer 4 X's a day and an Albuterol MDI PRN. She will follow up with her PCP, Dr. Heidy Shane, when the office in [place] opens in the next 4-6 weeks. Ausculation of the lungs at NE revealed them to be CTA with diminished BS's throughout. The cough had improved significantly and she felt ready for NE. This note was generated with [employer] dictation software. It may contain incorrect words, spelling, and punctuation that were not noted in checking the note before signing. Discharge Activity: - - Avoid exposure to any strong smells such as bleach, cleaning products, strong colognes or perfumes, paint fumes and smoke of any kind. Avoid sudden exposure to cold air because this can cause bronchospasm. You may want to cover your mouth when you go outside in the winter. Avoid exposure to anyone who is sick with a cough or sore throat. Call your doctor if you observe: Fever of 101 or Higher, Shortness of breath, Dizziness, Fainting spells, Chest pain Home Medications: Medications to take at Discharge Aspirin [Aspirin, Baby] 81 mg PO BID 10/08/16 Ipratropium/Albuterol Respimat [Combivent Respimat Inhal [place]] 1 puff INHALATION BID 10/08/16 Metoprolol Tartrate [Lopressor (beta gila)] 50 mg PO BID 10/08/16 Pantoprazole Sodium [Protonix] 40 mg PO DAILY 10/08/16 Rosuvastatin Calcium [Crestor] 20 mg PO QHS 10/08/16 Valsartan [Diovan] 80 mg PO BID 10/08/16 Amlodipine [Norvasc] 2.5 mg PO DAILY 11/11/17 Fluticasone/Salmeterol [Advair 250/50 Mcg Diskus] 1 puff INHALATION BID 11/11/17 Hydrochlorothiazide [Hctz] 25 mg PO DAILY 11/11/17 Montelukast [Singulair] 10 mg PO DAILY 11/11/17 Albuterol IH (ProAir) [Proair Hfa] 1 - 2 puff INHALATION Q6H PRN PRN #1 inhaler 11/13/17 Azithromycin [Zithromax] 500 mg PO Q24 #1 tab 11/13/17 Ipratropium/Albuterol Sulfate [Duoneb] 3 ml INHALATION Q4H.RT #120 ampul.neb 11/13/17 Nebulizer [Compact Compressor Nebulizer] 1 ea MC 4X/DAY #1 ea 11/13/17 Prednisone 10 mg PO UD #30 tab 11/13/17 Following Prescrptions Were Given to Patient: Ipratropium/Albuterol Sulfate [Duoneb] 3 ml INHALATION Q4H.RT #120 ampul.neb Albuterol IH (ProAir) [Proair Hfa] 1 - 2 puff INHALATION Q6H PRN PRN #1 inhaler PRN Reason: Dyspnea/Wheezing/Sob Azithromycin [Zithromax] 500 mg PO Q24 #1 tab Prednisone 10 mg PO UD #30 tab Nebulizer [Compact Compressor Nebulizer] 1 ea MC 4X/DAY #1 ea Primary Care Physician: Heidy Lowry [Primary Care Provider] - Please follow up with your Primary Care Physician in: when she moves her office to [place] Please Follow Up With: Ryan Winston DO When: 2 weeks Patient Instructions: Diabetes: Understanding Carbohydrates Disposition: Home Minutes spent on discharge:: 37 Patient Condition:: Stable Meaningful Use Info Meaningful Use Diagnoses (Choose all that apply): None applicable Code Visit Inpatient E&M: 68704 Disch Hosp
--- NOTE | 2017-11-13 18:03 | DS.PCM_ITS ---
Discharge Date and Diagnosis Date of Admission: 11/11/17 Date of Discharge: 11/13/17 - Primary Discharge Diagnosis Active and Suspected Problems Adenovirus pneumonia (Acute) COPD with acute exacerbation (Acute) due to adenovirus Glucose intolerance (Acute) - new diagnosis Somatic dysfunction of rib region (Acute) - left lower ribs - Secondary Discharge Diagnosis Chronic Problems Personal history of solitary pulmonary nodule (Chronic) - seen on a CT from [facility], not demonstrated on CT of chest at [facility] GERD (gastroesophageal reflux disease) (Chronic) Hypertension (Chronic) Diverticulosis (Chronic) History of partial colectomy (Chronic) History of gastric cancer (Chronic) History of partial gastrectomy (Chronic) H/O aortic valve replacement (Chronic) - bioprosthetic CAD (coronary artery disease) of artery bypass graft (Chronic) 10/2016 Hospital Course and Treatment Imaging Results: Clinical Impression(s) from Imaging Studies Chest X-Ray 11/11/17 04:15 IMPRESSION: Pneumonia in the lingula and left lower lobe. Electronically Signed: Caron Velazco MD at 5:18 EST Tel , Service support , Chest CTA 11/11/17 05:01 IMPRESSION: No demonstrated pulmonary embolism or arterial dissection. Left upper lobe and lingula pneumonia Electronically Signed: Caron Velazco MD at 7:35 EST Tel , Service support , Chest X-Ray 11/12/17 05:59 IMPRESSION: Progressive increased interstitial markings in both lungs suggestive of possible CHF superimposed on chronic scarring. Blunting of both costophrenic angles posteriorly. Electronically Signed: José Miguel Rome MD at 13:49 EST Tel [phone], Service support , Microbiology 11/11/17 05:20 Blood Culture (Wb) - Right Hand Blood Culture - Preliminary No growth in 48 hours. 11/11/17 05:20 Blood Culture (Wb) - Right Hand Blood Culture - Preliminary No growth in 48 hours. 11/11/17 10:45 Sputum, Expectorated/Coughed Gram Stain - Final 11/11/17 10:45 Sputum, Expectorated/Coughed Respiratory Culture - Final 11/11/17 11:21 Mucosa - Nose Respiratory Panel (PCR) - Final Adenovirus 11/11/17 10:30 Urine, Clean Catch Legionella Antigen - Final 11/11/17 10:30 Urine, Clean Catch Streptococcus pneumoniae Antigen (M - Final 11/11/17 04:18 Mucosa - Nose Influenza Types A,B Direct FA (ALEXUS) - Final Dr. Ryan Winston-pulmonary medicine Operations: None Procedures: None Summary of Care Provided: Patient is a 71-year-old female with a past medical history of COPD, hypertension, GERD, hyperlipidemia, coronary artery disease with history of CABG , history of gastric cancer with partial gastrectomy in 2011, diverticulosis with history of diverticulitis and partial colon resection, bioprosthetic aortic valve replacement and coronary stents who presented to the emergency room at [facility] on 11/11/2017 complaining of sharp left chest pain, shortness of breath and worsening cough. Cough was productive of yellow and green sputum. She stated her temperature on 11/10/2017 was 102.1. Vital signs at presentation to the emergency room were temperature 97.7, pulse rate 102, blood pressure 119/68, respiratory rate 20 and she was 90% saturated on room air. White blood cell count was elevated at 14.7 with a mild left shift. Electrolytes were within normal limits and the creatinine was 1.11 with a BUN of 18. Creatinine in September 2016 was 0.69. Random glucose was increased at 178 and the lactic acid was 1.8. Lactic acid was 1.8 and the BNP was 90. Chest x-ray to admission showed pneumonia on the left side. The ER physician was concerned about a possible pulmonary embolus because of the sharp left chest pain and a CTA of the chest was ordered and had no PE's but confirmed patchy infiltrates in the left lower lobe and lingula. It also showed extensive emphysematous changes....worse in the upper lobes. Influenza swab was negative and so were the streptococcal and Legionella antigens in the urine. Blood cultures had no growth after 48 hours. A respiratory panel was positive for adenovirus. She was admitted to the hospital with a diagnosis of pneumonia with acute exacerbation of COPD/emphysema. Levaquin was discontinued when the + adenovirus was obtained. Hydrochlorothiazide was discontinued and IV fluids were started. She was started on high dose IV steroids and ATC aerosolized bronchodilators. Consultation was obtained with Dr. Ryan Winston from pulmonary medicine. She was treated with a 3 day course of Azithromycin for acute exacerbation of COPD to decrease risk for a secondary bacterial infection. On 11-29 the temp is 97.6 and the blood pressure was 160/81. The elevation in blood pressures likely secondary to high-dose intravenous steroids. She was transitioned to prednisone. Ambulatory pulse ox showed a PO2 of 82% on room air that increased 88% on a 2 L nasal cannula. She was discharged on home oxygen 1-2 L at rest and 3 L with exertion. She expressed an interest in changing pulmonary physicians and wanted someone in [place]. She is going to follow up with Dr. Winston in 2 weeks. She was discharged on a tapering dose of Prednisone over the next next 12 days. Arrangements for oxygen and a nebulizer were made prior to discharge. She will use Duoneb in the nebulizer 4 X's a day and an Albuterol MDI PRN. She will follow up with her PCP, Dr. Heidy Shane, when the office in [place] opens in the next 4-6 weeks. Ausculation of the lungs at NC revealed them to be CTA with diminished BS's throughout. The cough had improved significantly and she felt ready for NC. This note was generated with [employer] dictation software. It may contain incorrect words, spelling, and punctuation that were not noted in checking the note before signing. Discharge Activity: - - Avoid exposure to any strong smells such as bleach, cleaning products, strong colognes or perfumes, paint fumes and smoke of any kind. Avoid sudden exposure to cold air because this can cause bronchospasm. You may want to cover your mouth when you go outside in the winter. Avoid exposure to anyone who is sick with a cough or sore throat. Call your doctor if you observe: Fever of 101 or Higher, Shortness of breath, Dizziness, Fainting spells, Chest pain Home Medications: Medications to take at Discharge Aspirin [Aspirin, Baby] 81 mg PO BID 10/08/16 Ipratropium/Albuterol Respimat [Combivent Respimat Inhal [place]] 1 puff INHALATION BID 10/08/16 Metoprolol Tartrate [Lopressor (beta gila)] 50 mg PO BID 10/08/16 Pantoprazole Sodium [Protonix] 40 mg PO DAILY 10/08/16 Rosuvastatin Calcium [Crestor] 20 mg PO QHS 10/08/16 Valsartan [Diovan] 80 mg PO BID 10/08/16 Amlodipine [Norvasc] 2.5 mg PO DAILY 11/11/17 Fluticasone/Salmeterol [Advair 250/50 Mcg Diskus] 1 puff INHALATION BID Hydrochlorothiazide [Hctz] 25 mg PO DAILY 11/11/17 Montelukast [Singulair] 10 mg PO DAILY 11/11/17 Albuterol IH (ProAir) [Proair Hfa] 1 - 2 puff INHALATION Q6H PRN PRN #1 inhaler 11/13/17 Azithromycin [Zithromax] 500 mg PO Q24 #1 tab 11/13/17 Ipratropium/Albuterol Sulfate [Duoneb] 3 ml INHALATION Q4H.RT #120 ampul.neb 11/29 Nebulizer [Compact Compressor Nebulizer] 1 ea MC 4X/DAY #1 ea 11/13/17 Prednisone 10 mg PO UD #30 tab 11/13/17 Following Prescrptions Were Given to Patient: Ipratropium/Albuterol Sulfate [Duoneb] 3 ml INHALATION Q4H.RT #120 ampul.neb Albuterol IH (ProAir) [Proair Hfa] 1 - 2 puff INHALATION Q6H PRN PRN #1 inhaler PRN Reason: Dyspnea/Wheezing/Sob Azithromycin [Zithromax] 500 mg PO Q24 #1 tab Prednisone 10 mg PO UD #30 tab Nebulizer [Compact Compressor Nebulizer] 1 ea MC 4X/DAY #1 ea Primary Care Physician: Heidy Lowry [Primary Care Provider] - Please follow up with your Primary Care Physician in: when she moves her office to [place] Please Follow Up With: Ryan Winston DO When: 2 weeks Patient Instructions: Diabetes: Understanding Carbohydrates Disposition: Home Minutes spent on discharge:: 37 Patient Condition:: Stable Meaningful Use Info Meaningful Use Diagnoses (Choose all that apply): None applicable Code Visit Inpatient E&M: 83676 Disch Hosp
== END 2017-11-13 18:43 | disposition home or self-care (01) | DRG 190 ==
LOC: ED 06:03 → MS2 06:47
PROVIDERS: Internal Medicine; Admitting Provider Internal Medicine; Emergency Provider Emergency Medicine; Family Provider Family Medicine; PCP Family Medicine; Visit Provider Internal Medicine
DX: J44.0 Chronic obstructive pulmonary disease with (acute) lower respiratory infection (principal); J12.0 Adenoviral pneumonia; J44.1 Chronic obstructive pulmonary disease with (acute) exacerbation; K21.9 Gastro-esophageal reflux disease without esophagitis; I10 Essential (primary) hypertension; Z90.49 Acquired absence of other specified parts of digestive tract; Z90.3 Acquired absence of stomach [part of]; Z85.028 Personal history of other malignant neoplasm of stomach; I25.10 Atherosclerotic heart disease of native coronary artery without angina pectoris; E74.39 Other disorders of intestinal carbohydrate absorption; E78.5 Hyperlipidemia, unspecified; R09.02 Hypoxemia; M99.08 Segmental and somatic dysfunction of rib cage; Z87.891 Personal history of nicotine dependence
CPT/HCPCS: 71046; 71275; 80048; 80076; 83036; 83605; 83735; 83880; 84100; 84484; 85025; 87040; 87070; 87205; 87449; 87633; 87804; 93005; 94640; 94667; 94668; 99285; J7030; J7040; Q9967; A4216

== ENCOUNTER → 2017-12-09 12:23 | Outpatient (CLI) | payer MEDICARE, OTHER, SELFPAY ==
[2017-12-09 12:54] VITALS: PULSE 78; PULSE 80; PULSE 87; PULSE 90; PULSE 91; PULSE 95; O2SAT 87; O2SAT 90; O2SAT 92; O2SAT 93; O2SAT 94; O2SAT 96
--- NOTE | 2017-12-10 13:23 | WT_ITS ---
PSN 6 Minute Walk Test - 6 Minute Walk Test 6 Minute Walk Test: 6 Minute Walk Test PSN:6-Minute Walk Test Start: 12/09/17 12: 53 Freq: Status: Active Protocol: [id number] Document 12/09/17 12:54 NOHELIA (Rec: 12/09/17 12:59 NOHELIA [id number]) 6 Minute Walk Test Date Performed 12/09/17 Time Performed 12:35 Height 5 ft Weight: 150 lb Weight in Pounds 150.[address]: Ryan Winston Assistive device used: None Pre-test Oxygen Delivery Method Room Air Pulse Ox (%) 90 Pulse Rate (60-100 beats/min) 78 Dyspnea Marixa Scale (0-10) 0.5 Exertion Marixa Scale (6-20) 6 1st minute Oxygen Delivery Method Room Air Pulse Ox (%) 90 Pulse Rate (60-100 beats/min) 90 2nd minute Oxygen Delivery Method Room Air Pulse Ox (%) 87 Pulse Rate (60-100 beats/min) 95 3rd minute Oxygen Flow Rate (L/min) 2 Oxygen Delivery Method Nasal Cannula Pulse Ox (%) 94 Pulse Rate (60-100 beats/min) 87 4th minute Oxygen Flow Rate (L/min) 2 Oxygen Delivery Method Nasal Cannula Pulse Ox (%) 94 Pulse Rate (60-100 beats/min) 91 5th minute Oxygen Flow Rate (L/min) 2 Oxygen Delivery Method Nasal Cannula Pulse Ox (%) 93 Pulse Rate (60-100 beats/min) 91 6th minute Oxygen Flow Rate (L/min) 2 Oxygen Delivery Method Nasal Cannula Pulse Ox (%) 92 Pulse Rate (60-100 beats/min) 90 Dyspnea Marixa Scale (0-10) 1 Exertion Marixa Scale (6-20) 12 Post-test Oxygen Flow Rate (L/min) 2 Oxygen Delivery Method Nasal Cannula Pulse Ox (%) 96 Pulse Rate (60-100 beats/min) 80 Full Laps Walked 12 Partial Lap, Number of Tiles Walked 40 Total Distance Walked (ft) 748 - Interpretation Interpretation: The patient ambulated 748 feet over the course of 6 minutes beginning on room air without assistive devices or breaks. Pretesting oxygen saturation was noted to be 90% on room air. With ambulation, the patricia oxygen saturation was 87% and minute #2 of testing. 2 L/min of supplemental oxygen was applied and the patient was able to complete the remainder of the test, while maintaining oxygen saturations at or above 88%. This test represents evidence of exertional hypoxemia and impaired walk distance. - Recommendations Recommendations: 2 L/min of supplemental oxygen should be utilized with exertion.
== END ==
PROVIDERS: Family Provider Family Medicine; PCP Family Medicine; Visit Provider Nurse Practitioner Acute Care
DX: R06.02 Shortness of breath (principal)
CPT/HCPCS: 94618

== ENCOUNTER → 2017-12-31 09:48 | Outpatient (CLI) | payer MEDICARE, OTHER, SELFPAY ==
--- NOTE | 2018-01-01 06:48 | PFTCOMP_ITS ---
COMPLETE PULMONARY FUNCTION TEST INTERPRETATION Brief HPI: Patient is a 72 year old female, currently under the care of Merlyn Aguilar, who presents to [facility] for complete pulmonary function tests secondary to diagnosis of dyspnea. Respiratory therapist reports good effort and reproducible results. Interpretation: Forced expiration spirometry shows a severe large airways obstructive ventilatory defect with an FEV1 of 37 % predicted. There is no significant bronchodilator response by ATS criteria. Spirograms are of good quality and plateau slowly, indicating slowly emptying areas of the lungs. The respiratory flow volume loop shows decreased expiratory flow rates at all lung volumes consistent with airway obstruction. Lung volumes by body plethysmography show a normal total lung capacity at 4.57 L , 114 % predicted. FRC and RV are elevated out of proportion. Lung volume measurements are consistent with hyperinflation and air-trapping. Diffusion capacity by carbon monoxide is decreased at 28 % predicted. The airway resistance is elevated. No previous pulmonary function tests were available for review. Impression: Irreversible severe large airways obstructive ventilatory defect resulting in air trapping with hyperinflation and a symmetric reduction diffusing capacity. This pattern is consistent with advanced COPD.
== END ==
PROVIDERS: Family Provider Family Medicine; PCP Family Medicine; Visit Provider Nurse Practitioner Acute Care
DX: R06.02 Shortness of breath (principal)
CPT/HCPCS: 94060; 94726; 94729

== ENCOUNTER → 2018-01-01 14:42 | Outpatient (CLI) | payer MEDICARE, OTHER, SELFPAY ==
[2018-01-01 18:05] LABS: Hemoglobin A1c 7.1 % (4.2-6.3)
[2018-01-01 18:10] LABS: Anion Gap 11 (5-15); BUN 25 mg/dL (7-18); BUN/Creat Ratio 24.8 RATIO (10-20); Calcium,Total 9.5 mg/dL (8.5-10.1); Chloride 103 mmol/L (98-107); Creatinine, Serum 1.01 mg/dL (0.55-1.02); EST Glomerular Filtration Rate 57 mL/min (>60); Est Glom Filt Rate - Afr Amer 70 mL/min (>60); Glucose 91 mg/dL (74-106); Potassium 3.7 mmol/L (3.5-5.1); Sodium Level 141 mmol/L (136-145); Thyroid Stim Hormone (TSH) 2.58 uIU/mL (0.358-3.74)
== END ==
PROVIDERS: Family Provider Family Medicine; PCP Family Medicine; Visit Provider Family Medicine
DX: I25.10 Atherosclerotic heart disease of native coronary artery without angina pectoris (principal); L65.9 Nonscarring hair loss, unspecified; R73.9 Hyperglycemia, unspecified
CPT/HCPCS: 36415; 80048; 83036; 84443

== ENCOUNTER 2018-01-26 11:07 | Inpatient (IN) | payer MEDICARE, OTHER, SELFPAY ==
[2018-01-26] VITALS (10 sets, daily range): BP systolic 104–140; BP diastolic 48–91; PULSE 67–82; RESP 16–20; TEMP 36.3–36.5; O2SAT 95–98; BMI 28.8
[2018-01-26] MEDS: Ipratropium/Albuterol Sulfate 3 ML AMPUL.NEB INHALATION ×3 (13:27→22:46)
[2018-01-26 13:52] LABS: Absolute Lymphocyte Count 2.11 X10^3/ul (0.83-4.51); Absolute Neutrophil Count 3.7 X10^3/uL (2.0-7.7); Basophil# 0.05 X10^3/uL; Basophil% 0.7 % (0-1); Eosinophils% 1.5 % (0-5); Hematocrit 36.8 % (37-47); Hemoglobin 11.7 g/dl (12.0-15.0); Lymphocyte # 2.11 X10^3/ul (4.0); Lymphocyte % 31.5 % (19-41); Mean Corp Hgb Conc 31.8 g/gl (32-36); Mean Corpuscular Hgb 29.1 pg (27.0-32.0); Mean Corpuscular Volume 91.5 fL (81-99); Mean Platelet Vol. 10.6 fl (6.2-12.0); Monocyte# 0.74 X10^3/uL; Monocyte% 11.1 % (0-10); Neutrophil # 3.66 X10^3/uL (2.7-7.7); Neutrophil % 54.8 % (47-70); Platelet Count 119 K/mm3 (150-450); RBC Distribution Width CV 14.1 % (11.6-14.6); RBC Distribution Width SD 46.2 fl (35.1-43.9); Red Blood Count 4.02 M/mm3 (4.2-5.4); White Blood Count 6.7 K/mm3 (4.4-11.0)
[2018-01-26 13:53] LABS: Differential Indicated SCAN CRITERIA MET; POSITIVE COUNT NO; POSITIVE DIFFERENTIAL NO; POSITIVE MORPHOLOGY YES
[2018-01-26] MEDS: predniSONE 20 MG Tablet 60 MG PO (13:59)
[2018-01-26] MEDS: Metoprolol Tartrate 50 MG Tablet PO ×2 (14:01→21:17)
[2018-01-26] MEDS: guaiFENesin 1,200 MG Tablet 1200 MG PO ×2 (14:01→21:13)
[2018-01-26] MEDS: hydroCHLOROthiazide 25 MG Tablet PO (14:01)
[2018-01-26] MEDS: amLODIPine 2.5 MG Tablet PO (14:01)
[2018-01-26] MEDS: Montelukast 10 MG Tablet PO (14:02)
[2018-01-26] MEDS: Aspirin 81 MG TAB.CHEW PO (14:02)
[2018-01-26] MEDS: Pantoprazole Sodium 40 MG Tablet PO (14:02)
[2018-01-26 14:03] LABS: Anion Gap 10 (5-15); BUN 48 mg/dL (7-18); BUN/Creat Ratio 28.9 RATIO (10-20); Calcium,Total 8.7 mg/dL (8.5-10.1); Chloride 103 mmol/L (98-107); Creatinine, Serum 1.66 mg/dL (0.55-1.02); EST Glomerular Filtration Rate 32 mL/min (>60); Est Glom Filt Rate - Afr Amer 39 mL/min (>60); Estimated Creatinine Clearance 22.33 ml/min; Glucose 94 mg/dL (74-106); Potassium 4.5 mmol/L (3.5-5.1); Sodium Level 139 mmol/L (136-145)
[2018-01-26 14:20] LABS: Atypical Lymphocyte RARE %
[2018-01-26] MEDS: Enoxaparin 30 MG/0.3 ML Syringe SC (15:40)
[2018-01-26] MEDS: Albuterol 2.5 MG/3 ML VIAL.NEB. INHALATION (16:08)
--- NOTE | 2018-01-26 16:16 | RAD_ITS ---
XR Chest 2 Views INDICATION: SHORTNESS OF BREATH COMPARISON: November 12, 2017 TECHNIQUE: 2 views of the chest FINDINGS: A stimulator battery pack is seen over the left chest with electrodes extending cranially. Sternotomy wires are noted. Mediastinal clips and stents as well as a valve replacement. The heart size and pulmonary vascularity appear within normal limits. The lungs are hyperinflated with mild flattening of the diaphragm. There is no evidence of focal airspace consolidation or pleural effusion. RAD/Chest PA and Lateral IMPRESSION: COPD/emphysema. No active infiltrate or effusion. at 1743 Reported and signed by: Elvi Montes MD Electronically Signed: Elvi Montes MD at 17:41 EDT Tel , Service support ,
--- NOTE | 2018-01-26 16:18 | PCM.HP.STD ---
Problem List (1) COPD with acute exacerbation Status: Acute (2) Acute respiratory failure with hypoxia Status: Acute (3) Complex regional pain syndrome i of left upper limb Status: Chronic (4) Lung nodule Status: Chronic (5) COPD (chronic obstructive pulmonary disease) Status: Chronic Qualifiers: (6) GERD (gastroesophageal reflux disease) Status: Chronic (7) Hypertension Status: Chronic (8) History of gastric cancer Status: Chronic (9) Diverticulosis Status: Chronic (10) H/O aortic valve replacement Status: Resolved (11) CAD (coronary artery disease) of artery bypass graft Status: Chronic Comment: 10/2016 History of Present Illness Date of Admission: 01/26/18 Chief Complaint: shortness of breath. The patient is a 72 year old F presents with shortness of breath. Patient has been short of breath for over a week and was recently treated with steroids as well as Levaquin as patient was contracted and illness. Patient had not gotten any better and had a follow-up appointment scheduled with Dr. Winston today. Given the patient's symptoms I feel it prudent to send the patient to the hospital. Patient noted that her's pulse ox at home was in the 80s. Patient was started on prednisone as bronchial dilators was really not feeling better so patient be transitioned over to Solu-Medrol. Patient states that her symptoms are similar to her prior COPD exacerbations. [] Past Medical History Past Medical History (Chronic Problems): Chronic Problems (Last Reviewed 01/26/18 @ 10:13 by Belle Carnes) Complex regional pain syndrome i of left upper limb (Chronic) Lung nodule (Chronic) COPD (chronic obstructive pulmonary disease) (Chronic) Stomach cancer (Chronic) Personal history of solitary pulmonary nodule (Chronic) GERD (gastroesophageal reflux disease) (Chronic) Hypertension (Chronic) History of partial colectomy (Chronic) History of gastric cancer (Chronic) Diverticulosis (Chronic) CAD (coronary artery disease) of artery bypass graft (Chronic) 10/2016 Allergies Sulfa (Sulfonamide Antibiotics) Allergy (Verified 01/26/18 10:13) Rash carbamazepine [From Tegretol] Adverse Reaction (Verified 01/26/18 10:13) liver damage famotidine [From Pepcid] Adverse Reaction (Verified 01/26/18 10:13) hair loss ivp dye Allergy (Uncoded 01/26/18 10:13) Hives Home Medications: Ambulatory Orders Medication Instructions Recorded Aspirin [Aspirin, Baby] 81 mg PO BID 10/08/16 Metoprolol Tartrate [Lopressor 50 mg PO BID 10/08/16 (beta gila)] Pantoprazole Sodium [Protonix] 40 mg PO DAILY 10/08/16 Rosuvastatin Calcium [Crestor] 20 mg PO QHS 10/08/16 Valsartan [Diovan] 80 mg PO BID 10/08/16 Amlodipine [Norvasc] 2.5 mg PO DAILY 11/11/17 Fluticasone/Salmeterol [Advair 1 puff INHALATION BID 11/11/17 250/50 Mcg Diskus] Hydrochlorothiazide [Hctz] 25 mg PO DAILY 11/11/17 Montelukast [Singulair] 10 mg PO DAILY 11/11/17 Albuterol Sulfate [Ventolin Hfa] 18 gm IH Q6H PRN PRN MDD 1-2 puffs 01/26/18 Surgical History: cataract, cholecystectomy, coronary bypass surgery, herniorrhaphy, - - Partial gastrectomy secondary to gastric cancer in 2011, neurostimulator implant left arm due to cut radial nerve, partial colon resection secondary to diverticulitis, bioprosthetic aortic valve, coronary artery stents Psychiatric History: No pertinent psych hx 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 Denies: Night Sweats Eyes: Denies: Drainage HEENT: Denies: Head Aches, Sinus Congestion, Sinus Drainage Cardiovascular: Denies: Chest Pain, Palpitations Respiratory: Reports: Shortness of Breath. Denies: Cough, Sputum production Gastrointestinal: Denies: Abdominal Pain, Nausea, Vomiting Genitourinary: Denies: Dysuria Skin: Denies: Rash, Wounds Neurological: Denies: Numbness, Tingling, Focal weakness Psychiatric: Denies: Anxiety, Depression Endocrine: Denies: Change in Body Habitus, Heat/ Cold Intolerance Hematologic/ Lymphatic: Denies: Easy Bruising, Easy Bleeding, Hx of blood clot VTE Information - Inpt Only VTE Present on Admission: No VTE Pharm Prophylaxis ordered?: Yes Patient Problems: Active and Suspected Problems (Last Reviewed 01/26/18 @ 10:13 by Belle Carnes) COPD with acute exacerbation (Acute) Acute respiratory failure with hypoxia (Acute) - Physical Exam General: Alert, Cooperative, No apparent distress HEENT: Atraumatic, Normocephalic Neck: No Nodes, Thyroid Normal Size and Texture Lungs: Diminished, Wheezes Cardiovascular: Regular rate, Regular Rhythm, Normal S1, Normal S2, No murmurs Abdomen: Bowel Sounds Present, Soft, Non Tender, Non-Distended, No Hepato-splenomegaly Extremities: No clubbing, No cyanosis, No edema, No Calf Tenderness Skin: No rashes, No breakdown Musculoskeletal: No Tenderness to Palpation of Joints or Extremities Psych/Mental Status: Normal Affect, Appropriate Vital Signs Temp Pulse Resp BP Pulse Ox 36.5 C L 82 18 118/64 95 01/26/18 13:58 01/26/18 14:01 01/26/18 13:58 01/26/18 14:01 01/26/18 13:58 Oxygen Flow Rate (L/min) 3 Oxygen Delivery Method Nasal Cannula Weight: 66.8 kg Body Mass Index (BMI) 28.8 Intake and Output for Last 24 Hours 01/24/18 01/25/18 01/26/18 23:59 23:59 23:59 Intake Total 100 / 100 Balance 100 / 100 Laboratory Tests Past 24 Hrs 01/26/18 01/26/18 13:30 13:30 WBC 6.7 RBC 4.02 L Hgb 11.7 L Hct 36.8 L MCV 91.5 MCH 29.1 MCHC 31.8 L RDW 14.1 RDW Differential 46.2 H Plt Count 119 L MPV 10.6 Immature Gran % (Auto) 0.400 Neut % (Auto) 54.8 Lymph % (Auto) 31.5 Quay % (Auto) 11.1 H Eos % (Auto) 1.5 Baso % (Auto) 0.7 Absolute Neuts (auto) 3.7 Absolute Lymphs (auto) 2.11 Total Counted Not Reportable Atypical Lymphocytes RARE Sodium 139 Potassium 4.5 Chloride 103 Carbon Dioxide 26.0 Anion Gap 10 BUN 48 H Creatinine 1.66 H Estim Creat Clear Calc 22.33 Est GFR (MDRD) Af Amer 39 L Est GFR (MDRD) Non-Af 32 L BUN/Creatinine Ratio 28.9 H Glucose 94 Calcium 8.7 Assessment/Plan Active and Suspected Problems (Last Reviewed 01/26/18 @ 10:13 by Belle Carnes) COPD with acute exacerbation (Acute) Acute respiratory failure with hypoxia (Acute) 1. Acute exacerbation of COPD Continued bronchodilators and IV Solu-Medrol. Check chest x-ray to see if there is any infiltrate. Unless there is definitive infiltrate I will hold off on antibiotics at this time. 2. Acute hypoxic respiratory failure Secondary to above 3. DVT prophylaxis with Lovenox 4. Advanced care planning: Discussed DNR with patient. Patient wishes to be DNR Comfort Care arrest and no intubation. I did inform patient that she can certainly change her mind if she so wishes at a later point. Code Visit Inpatient E&M: 91805 Init Hosp L2
--- NOTE | 2018-01-26 16:26 | HP.PCM_ITS ---
Problem List (1) COPD with acute exacerbation Status: Acute (2) Acute respiratory failure with hypoxia Status: Acute (3) Complex regional pain syndrome i of left upper limb Status: Chronic (4) Lung nodule Status: Chronic (5) COPD (chronic obstructive pulmonary disease) Status: Chronic Qualifiers: (6) GERD (gastroesophageal reflux disease) Status: Chronic (7) Hypertension Status: Chronic (8) History of gastric cancer Status: Chronic (9) Diverticulosis Status: Chronic (10) H/O aortic valve replacement Status: Resolved (11) CAD (coronary artery disease) of artery bypass graft Status: Chronic Comment: 10/2016 History of Present Illness Date of Admission: 01/26/18 Chief Complaint: shortness of breath. The patient is a 72 year old F presents with shortness of breath. Patient has been short of breath for over a week and was recently treated with steroids as well as Levaquin as patient was contracted and illness. Patient had not gotten any better and had a follow-up appointment scheduled with Dr. Winston today. Given the patient's symptoms I feel it prudent to send the patient to the hospital. Patient noted that her's pulse ox at home was in the 80s. Patient was started on prednisone as bronchial dilators was really not feeling better so patient be transitioned over to Solu-Medrol. Patient states that her symptoms are similar to her prior COPD exacerbations. [] Past Medical History Past Medical History (Chronic Problems): Chronic Problems (Last Reviewed 01/26/18 @ 10:13 by Belle Carnes) Complex regional pain syndrome i of left upper limb (Chronic) Lung nodule (Chronic) COPD (chronic obstructive pulmonary disease) (Chronic) Stomach cancer (Chronic) Personal history of solitary pulmonary nodule (Chronic) GERD (gastroesophageal reflux disease) (Chronic) Hypertension (Chronic) History of partial colectomy (Chronic) History of gastric cancer (Chronic) Diverticulosis (Chronic) CAD (coronary artery disease) of artery bypass graft (Chronic) 10/2016 Allergies Sulfa (Sulfonamide Antibiotics) Allergy (Verified 01/26/18 10:13) Rash carbamazepine [From Tegretol] Adverse Reaction (Verified 01/26/18 10:13) liver damage famotidine [From Pepcid] Adverse Reaction (Verified 01/26/18 10:13) hair loss ivp dye Allergy (Uncoded 01/26/18 10:13) Hives Home Medications: Ambulatory Orders Medication Instructions Recorded Aspirin [Aspirin, Baby] 81 mg PO BID 10/08/16 Metoprolol Tartrate [Lopressor 50 mg PO BID 10/08/16 (beta gila)] Pantoprazole Sodium [Protonix] 40 mg PO DAILY 10/08/16 Rosuvastatin Calcium [Crestor] 20 mg PO QHS 10/08/16 Valsartan [Diovan] 80 mg PO BID 10/08/16 Amlodipine [Norvasc] 2.5 mg PO DAILY 11/11/17 Fluticasone/Salmeterol [Advair 1 puff INHALATION BID 11/11/17 250/50 Mcg Diskus] Hydrochlorothiazide [Hctz] 25 mg PO DAILY 11/11/17 Montelukast [Singulair] 10 mg PO DAILY 11/11/17 Albuterol Sulfate [Ventolin Hfa] 18 gm IH Q6H PRN PRN MDD 1-2 puffs 01/26/18 Surgical History: cataract, cholecystectomy, coronary bypass surgery, herniorrhaphy, - - Partial gastrectomy secondary to gastric cancer in 2011, neurostimulator implant left arm due to cut radial nerve, partial colon resection secondary to diverticulitis, bioprosthetic aortic valve, coronary artery stents Psychiatric History: No pertinent psych hx OFFICE AIDE History: No pertinent OFFICE AIDE history Smoking Status: Former smoker Tobacco Use: Non-smoker Alcohol: None Drugs: None - *Family History Maternal History Items: Diabetes, - - aneurysm Paternal History Items: Stroke Review of Systems Constitutional: Reports: Chills, Fever. Denies: Night Sweats Eyes: Denies: Drainage HEENT: Denies: Head Aches, Sinus Congestion, Sinus Drainage Cardiovascular: Denies: Chest Pain, Palpitations Respiratory: Reports: Shortness of Breath. Denies: Cough, Sputum production Gastrointestinal: Denies: Abdominal Pain, Nausea, Vomiting Genitourinary: Denies: Dysuria Skin: Denies: Rash, Wounds Neurological: Denies: Numbness, Tingling, Focal weakness Psychiatric: Denies: Anxiety, Depression Endocrine: Denies: Change in Body Habitus, Heat/ Cold Intolerance Hematologic/ Lymphatic: Denies: Easy Bruising, Easy Bleeding, Hx of blood clot VTE Information - Inpt Only VTE Present on Admission: No VTE Pharm Prophylaxis ordered?: Yes Patient Problems: Active and Suspected Problems (Last Reviewed 01/26/18 @ 10:13 by Belle Carnes ) COPD with acute exacerbation (Acute) Acute respiratory failure with hypoxia (Acute) - Physical Exam General: Alert, Cooperative, No apparent distress HEENT: Atraumatic, Normocephalic Neck: No Nodes, Thyroid Normal Size and Texture Lungs: Diminished, Wheezes Cardiovascular: Regular rate, Regular Rhythm, Normal S1, Normal S2, No murmurs Abdomen: Bowel Sounds Present, Soft, Non Tender, Non-Distended, No Hepato- splenomegaly Extremities: No clubbing, No cyanosis, No edema, No Calf Tenderness Skin: No rashes, No breakdown Musculoskeletal: No Tenderness to Palpation of Joints or Extremities Psych/Mental Status: Normal Affect, Appropriate Vital Signs Temp Pulse Resp BP Pulse Ox 36.5 C L 82 18 118/64 95 01/26/18 13:58 01/26/18 14:01 01/26/18 13:58 01/26/18 14:01 01/26/18 13:58 Oxygen Flow Rate (L/min) 3 Oxygen Delivery Method Nasal Cannula Weight: 66.8 kg Body Mass Index (BMI) 28.8 Intake and Output for Last 24 Hours 01/24/18 01/25/18 01/26/18 23:59 23:59 23:59 Intake Total 100 / 100 Balance 100 / 100 Laboratory Tests Past 24 Hrs 01/26/18 01/26/18 13:30 13:30 WBC 6.7 RBC 4.02 L Hgb 11.7 L Hct 36.8 L MCV 91.5 MCH 29.1 MCHC 31.8 L RDW 14.1 RDW Differential 46.2 H Plt Count 119 L MPV 10.6 Immature Gran % (Auto) 0.400 Neut % (Auto) 54.8 Lymph % (Auto) 31.5 Bates % (Auto) 11.1 H Eos % (Auto) 1.5 Baso % (Auto) 0.7 Absolute Neuts (auto) 3.7 Absolute Lymphs (auto) 2.11 Total Counted Not Reportable Atypical Lymphocytes RARE Sodium 139 Potassium 4.5 Chloride 103 Carbon Dioxide 26.0 Anion Gap 10 BUN 48 H Creatinine 1.66 H Estim Creat Clear Calc 22.33 Est GFR (MDRD) Af Amer 39 L Est GFR (MDRD) Non-Af 32 L BUN/Creatinine Ratio 28.9 H Glucose 94 Calcium 8.7 Assessment/Plan Active and Suspected Problems (Last Reviewed 01/26/18 @ 10:13 by Belle Carnes ) COPD with acute exacerbation (Acute) Acute respiratory failure with hypoxia (Acute) 1. Acute exacerbation of COPD * Continued bronchodilators and IV Solu-Medrol. * Check chest x-ray to see if there is any infiltrate. * Unless there is definitive infiltrate I will hold off on antibiotics at this time. 2. Acute hypoxic respiratory failure * Secondary to above 3. DVT prophylaxis with Lovenox 4. Advanced care planning: Discussed DNR with patient. Patient wishes to be DNR Comfort Care arrest and no intubation. I did inform patient that she can certainly change her mind if she so wishes at a later point. Code Visit Inpatient E&M: 49001 Init Hosp L2
[2018-01-26] MEDS: Atorvastatin Calcium 40 MG Tablet PO (21:12)
[2018-01-26] MEDS: 0.9% NaCl Peripheral Flush Adult/Peds IV (21:14)
[2018-01-27] VITALS (13 sets, daily range): BP systolic 114–139; BP diastolic 47–88; PULSE 67–81; RESP 14–18; TEMP 36.4–36.6; O2SAT 95–97
[2018-01-27] MEDS: 0.9% NaCl Peripheral Flush Adult/Peds IV ×2 (06:30→13:34)
[2018-01-27] MEDS: Enoxaparin 30 MG/0.3 ML Syringe SC (06:31)
[2018-01-27 06:48] LABS: Anion Gap 10 (5-15); BUN 45 mg/dL (7-18); BUN/Creat Ratio 31.7 RATIO (10-20); Calcium,Total 8.8 mg/dL (8.5-10.1); Chloride 104 mmol/L (98-107); Creatinine, Serum 1.42 mg/dL (0.55-1.02); EST Glomerular Filtration Rate 39 mL/min (>60); Est Glom Filt Rate - Afr Amer 47 mL/min (>60); Glucose 227 mg/dL (74-106); Potassium 4.6 mmol/L (3.5-5.1); Sodium Level 140 mmol/L (136-145)
[2018-01-27] MEDS: Ipratropium/Albuterol Sulfate 3 ML AMPUL.NEB INHALATION ×5 (07:00→23:09)
[2018-01-27] MEDS: Aspirin 81 MG TAB.CHEW PO ×2 (07:59→16:38)
--- NOTE | 2018-01-27 10:33 | PCM.PN.HOSP ---
Patient Problems: Active and Suspected Problems (Last Reviewed 01/26/18 @ 10:13 by Belle Carnes) COPD with acute exacerbation (Acute) Acute respiratory failure with hypoxia (Acute) Subjective: Still short of breath but will better today. Vitals/I&O's: Vital Signs Temp Pulse Resp BP Pulse Ox 36.6 C 67 14 114/47 L 97 01/27/18 07:56 01/27/18 10:01 01/27/18 10:01 01/27/18 10:01 01/27/18 10:01 Oxygen Flow Rate (L/min) 3 Oxygen Delivery Method Nasal Cannula Weight: 66.8 kg Body Mass Index (BMI) 28.8 Intake and Output for Last 24 Hours 01/25/18 01/26/18 01/27/18 23:59 23:59 23:59 Intake Total 420 / 420 150 / 150 Output Total 250 / 250 Balance 170 / 170 150 / 150 General: Alert, Cooperative, No apparent distress HEENT: Atraumatic, Normocephalic Neck: No Nodes, Thyroid Normal Size and Texture Lungs: Diminished, Wheezes Cardiovascular: Regular rate, Regular Rhythm, Normal S1, Normal S2, No murmurs Abdomen: Bowel Sounds Present, Soft, Non Tender, Non-Distended, No Hepato-splenomegaly Extremities: No edema, No Calf Tenderness Psych/Mental Status: Normal Affect, Appropriate Laboratory Results 01/26/18 13:30: WBC 6.7, RBC 4.02 L, Hgb 11.7 L, Hct 36.8 L, MCV 91.5, MCH 29.1, MCHC 31.8 L, RDW 14.1, RDW Differential 46.2 H, Plt Count 119 L, MPV 10.6, Immature Gran % (Auto) 0.400, Neut % (Auto) 54.8, Lymph % (Auto) 31.5, Ross % (Auto) 11.1 H, Eos % (Auto) 1.5, Baso % (Auto) 0.7, Absolute Neuts (auto) 3.7, Absolute Lymphs (auto) 2.11, Total Counted Not Reportable, Atypical Lymphocytes RARE 01/26/18 13:30: Sodium 139, Potassium 4.5, Chloride 103, Carbon Dioxide 26.0, Anion Gap 10, BUN 48 H, Creatinine 1.66 H, Estim Creat Clear Calc 22.33, Est GFR (MDRD) Af Amer 39 L, Est GFR (MDRD) Non-Af 32 L, BUN/Creatinine Ratio 28.9 H, Glucose 94, Calcium 8.7 01/27/18 05:56: Sodium 140, Potassium 4.6, Chloride 104, Carbon Dioxide 26.0, Anion Gap 10, BUN 45 H, Creatinine 1.42 H, Estim Creat Clear Calc 26.10, Est GFR (MDRD) Af Amer 47 L, Est GFR (MDRD) Non-Af 39 L, BUN/Creatinine Ratio 31.7 H, Glucose 227 H, Calcium 8.8 Current Medications Albuterol Sulfate (Ventolin Aerosols) 2.5 mg INHALATION Q2H PRN PRN PRN Reason: SHORTNESS OF BREATH Last Admin: 01/26/18 16:08 Dose: 2.5 mg Albuterol/Ipratropium (Duoneb) 3 ml INHALATION Q4H.RT [facility] Last Admin: 01/27/18 07:00 Dose: 3 ml Amlodipine Besylate (Norvasc) 2.5 mg PO DAILY [facility] Last Admin: 01/26/18 14:01 Dose: 2.5 mg Aspirin (Aspirin, Baby) 81 mg PO BIDCM [facility] Last Admin: 01/27/18 07:59 Dose: 81 mg Atorvastatin Calcium (Lipitor) 40 mg PO QHS [facility] Last Admin: 01/26/18 21:12 Dose: 40 mg Enoxaparin Sodium (Lovenox) 30 mg SC DAILY@0600 [facility] Last Admin: 01/27/18 06:31 Dose: 30 mg Guaifenesin (Mucinex) 1,200 mg PO BID [facility] Last Admin: 01/26/18 21:13 Dose: 1,200 mg Magnesium Hydroxide (Milk Of Magnesia) 30 ml PO DAILY PRN PRN PRN Reason: Constipation Methylprednisolone (Solu-Medrol) 40 mg IV Q8 [facility] Last Admin: 01/27/18 06:31 Dose: 40 mg Metoprolol Tartrate (Lopressor (Beta Johnathon)) 50 mg PO BID [facility] Last Admin: 01/26/18 21:17 Dose: 50 mg Montelukast Sodium (Singulair) 10 mg PO DAILY [facility] Last Admin: 01/26/18 14:02 Dose: 10 mg Pantoprazole Sodium (Protonix) 40 mg PO DAILY [facility] Last Admin: 01/26/18 14:02 Dose: 40 mg Sodium Chloride () 5 - 30 ml IV UD PRN PRN Reason: SALINE FLUSH Last Admin: 01/27/18 06:30 Dose: 10 ml Valsartan (Diovan) 80 mg PO BID [facility] Last Admin: 01/26/18 21:13 Dose: 80 mg Medical Necessity - Tobacco Use Smoking Status: Former smoker Tobacco Use: Non-smoker Assessment/Plan Active and Suspected Problems (Last Reviewed 01/26/18 @ 10:13 by Belle Carnes) COPD with acute exacerbation (Acute) Acute respiratory failure with hypoxia (Acute) 1. Acute exacerbation of COPD Continued bronchodilators and IV Solu-Medrol. Check chest x-ray to see if there is any infiltrate. Unless there is definitive infiltrate I will hold off on antibiotics at this time. Some subjective improvement today but still short of breath. 2. Acute hypoxic respiratory failure Secondary to above 3. DVT prophylaxis with Lovenox 4. Advanced care planning: Discussed DNR with patient. Patient wishes to be DNR Comfort Care arrest and no intubation. I did inform patient that she can certainly change her mind if she so wishes at a later point. Code Visit Inpatient E&M: 93692 Subs Hosp L2
--- NOTE | 2018-01-27 10:53 | NURSING ---
communication sent to pharmacy at 1012- notifying them that patient has no AM meds in her drawer but that mucinex is needed because we do not have available on unit. At 1053 this RN called pharmacy regarding same meds- requesting to have sent. Understanding verified and notified they would be sent.
[2018-01-27] MEDS: Metoprolol Tartrate 50 MG Tablet PO ×2 (11:25→20:36)
[2018-01-27] MEDS: guaiFENesin 1,200 MG Tablet 1200 MG PO ×2 (11:25→20:36)
[2018-01-27] MEDS: Montelukast 10 MG Tablet PO (11:25)
[2018-01-27] MEDS: Pantoprazole Sodium 40 MG Tablet PO (11:25)
--- NOTE | 2018-01-27 11:27 | NURSING ---
Patient's b/p running on the low side- [employer] and norvasc held- will continue to monitor.
--- NOTE | 2018-01-27 12:12 | CASEMGMT ---
AUDRA HONG Face to Face with patient for initial transition planning/care coordination assessment. RN GELY introduced self and role at [facility]. Patient lying in bed, alert and oriented. Patient willing to participate in assessment and is able to answer all questions appropriately. Care providers, pharmacy, and demographics verified. See link attached. Patient has home and portable oxygen through [employer]. Patient wishes to discharge home, denies need for home health at this time. Patient states she has no further needs or concerns at this time. CM to follow for discharge planning needs that may arise. Disposition Plan: Patient to discharge home with family support and follow-up plans in place.
[2018-01-27] MEDS: amLODIPine 2.5 MG Tablet PO (13:34)
[2018-01-27] MEDS: Atorvastatin Calcium 40 MG Tablet PO (20:36)
[2018-01-28] VITALS (13 sets, daily range): BP systolic 114–130; BP diastolic 50–64; PULSE 70–82; RESP 14–20; TEMP 36.4–37; O2SAT 93–98
[2018-01-28] MEDS: Ipratropium/Albuterol Sulfate 3 ML AMPUL.NEB INHALATION ×5 (03:11→23:11)
[2018-01-28] MEDS: Enoxaparin 30 MG/0.3 ML Syringe SC (06:18)
[2018-01-28] MEDS: 0.9% NaCl Peripheral Flush Adult/Peds IV ×2 (06:18→20:53)
[2018-01-28] MEDS: Metoprolol Tartrate 50 MG Tablet PO ×2 (08:44→20:52)
[2018-01-28] MEDS: guaiFENesin 1,200 MG Tablet 1200 MG PO ×2 (08:44→20:52)
[2018-01-28] MEDS: Aspirin 81 MG TAB.CHEW PO ×2 (08:44→16:23)
[2018-01-28] MEDS: Montelukast 10 MG Tablet PO (08:44)
[2018-01-28] MEDS: Pantoprazole Sodium 40 MG Tablet PO (08:44)
--- NOTE | 2018-01-28 09:56 | PCM.PN.HOSP ---
Patient Problems: Active and Suspected Problems (Last Reviewed 01/26/18 @ 10:13 by Belle Carnes) COPD with acute exacerbation (Acute) Acute respiratory failure with hypoxia (Acute) Subjective: Feeling worse today. Patient said that she felt particularly worse this morning breathing shelby and just had myalgias. Feeling slightly better but she does not feel as well as she would like at this time. Patient state that this been going on since her valve replacement. Vitals/I&O's: Vital Signs Temp Pulse Resp BP Pulse Ox 36.7 C 76 16 118/50 L 96 01/28/18 08:20 01/28/18 08:44 01/28/18 08:20 01/28/18 08:20 01/28/18 08:20 Oxygen Flow Rate (L/min) 3 Oxygen Delivery Method Nasal Cannula Weight: 66.8 kg Body Mass Index (BMI) 28.8 Intake and Output for Last 24 Hours 01/26/18 01/27/18 01/28/18 23:59 23:59 23:59 Intake Total 420 / 420 1000 / 1000 620 / 620 Output Total 250 / 250 Balance 170 / 170 1000 / 1000 620 / 620 General: Alert, No apparent distress HEENT: Atraumatic, Normocephalic Neck: No Nodes, Thyroid Normal Size and Texture Lungs: Clear to auscultation, Diminished, - - Improved aeration overall but minimal. Cardiovascular: Regular rate, Regular Rhythm, Normal S1, Normal S2, No murmurs Abdomen: Bowel Sounds Present, Soft, Non Tender, Non-Distended, No Hepato-splenomegaly Extremities: No edema, No Calf Tenderness Psych/Mental Status: Normal Affect, Appropriate Current Medications Albuterol Sulfate (Ventolin Aerosols) 2.5 mg INHALATION Q2H PRN PRN PRN Reason: SHORTNESS OF BREATH Last Admin: 01/26/18 16:08 Dose: 2.5 mg Albuterol/Ipratropium (Duoneb) 3 ml INHALATION Q4H.RT [facility] Last Admin: 01/28/18 07:32 Dose: 3 ml Amlodipine Besylate (Norvasc) 2.5 mg PO DAILY [facility] Last Admin: 01/27/18 13:34 Dose: 2.5 mg Aspirin (Aspirin, Baby) 81 mg PO BIDCM [facility] Last Admin: 01/28/18 08:44 Dose: 81 mg Atorvastatin Calcium (Lipitor) 40 mg PO QHS [facility] Last Admin: 01/27/18 20:36 Dose: 40 mg Enoxaparin Sodium (Lovenox) 30 mg SC DAILY@0600 [facility] Last Admin: 01/28/18 06:18 Dose: 30 mg Guaifenesin (Mucinex) 1,200 mg PO BID [facility] Last Admin: 01/28/18 08:44 Dose: 1,200 mg Magnesium Hydroxide (Milk Of Magnesia) 30 ml PO DAILY PRN PRN PRN Reason: Constipation Methylprednisolone (Solu-Medrol) 40 mg IV Q8 [facility] Last Admin: 01/28/18 06:18 Dose: 40 mg Metoprolol Tartrate (Lopressor (Beta Johnathon)) 50 mg PO BID [facility] Last Admin: 01/28/18 08:44 Dose: 50 mg Montelukast Sodium (Singulair) 10 mg PO DAILY [facility] Last Admin: 01/28/18 08:44 Dose: 10 mg Pantoprazole Sodium (Protonix) 40 mg PO DAILY [facility] Last Admin: 01/28/18 08:44 Dose: 40 mg Sodium Chloride () 5 - 30 ml IV UD PRN PRN Reason: SALINE FLUSH Last Admin: 01/28/18 06:18 Dose: 10 ml Valsartan (Diovan) 80 mg PO BID [facility] Last Admin: 01/27/18 20:36 Dose: 80 mg Medical Necessity - Tobacco Use Smoking Status: Former smoker Tobacco Use: Non-smoker Assessment/Plan Active and Suspected Problems (Last Reviewed 01/26/18 @ 10:13 by Belle Carnes) COPD with acute exacerbation (Acute) Acute respiratory failure with hypoxia (Acute) 1. Acute exacerbation of COPD Continued bronchodilators and IV Solu-Medrol. Check chest x-ray to see if there is any infiltrate. Unless there is definitive infiltrate I will hold off on antibiotics at this time. Some subjective improvement today but still short of breath. Overall, I feel the patient is doing better slowly. Anticipate a slow recovery process for the patient. We will continue with current management as is. 2. Acute hypoxic respiratory failure Secondary to above 3. DVT prophylaxis with Lovenox 4. Advanced care planning: Discussed DNR with patient. Patient wishes to be DNR Comfort Care arrest and no intubation. I did inform patient that she can certainly change her mind if she so wishes at a later point. Code Visit Inpatient E&M: 48216 Subs Hosp L2
--- NOTE | 2018-01-28 09:59 | PN_ITS ---
Patient Problems: Active and Suspected Problems (Last Reviewed 01/26/18 @ 10:13 by Belle Carnes ) COPD with acute exacerbation (Acute) Acute respiratory failure with hypoxia (Acute) Subjective: Feeling worse today. Patient said that she felt particularly worse this morning breathing shelby and just had myalgias. Feeling slightly better but she does not feel as well as she would like at this time. Patient state that this been going on since her valve replacement. Vitals/I&O's: Vital Signs Temp Pulse Resp BP Pulse Ox 36.7 C 76 16 118/50 L 96 01/28/18 08:20 01/28/18 08:44 01/28/18 08:20 01/28/18 08:20 01/28/18 08:20 Oxygen Flow Rate (L/min) 3 Oxygen Delivery Method Nasal Cannula Weight: 66.8 kg Body Mass Index (BMI) 28.8 Intake and Output for Last 24 Hours 01/26/18 01/27/18 01/28/18 23:59 23:59 23:59 Intake Total 420 / 420 1000 / 1000 620 / 620 Output Total 250 / 250 Balance 170 / 170 1000 / 1000 620 / 620 General: Alert, No apparent distress HEENT: Atraumatic, Normocephalic Neck: No Nodes, Thyroid Normal Size and Texture Lungs: Clear to auscultation, Diminished, - - Improved aeration overall but minimal. Cardiovascular: Regular rate, Regular Rhythm, Normal S1, Normal S2, No murmurs Abdomen: Bowel Sounds Present, Soft, Non Tender, Non-Distended, No Hepato- splenomegaly Extremities: No edema, No Calf Tenderness Psych/Mental Status: Normal Affect, Appropriate Current Medications Albuterol Sulfate (Ventolin Aerosols) 2.5 mg INHALATION Q2H PRN PRN PRN Reason: SHORTNESS OF BREATH Last Admin: 01/26/18 16:08 Dose: 2.5 mg Albuterol/Ipratropium (Duoneb) 3 ml INHALATION Q4H.RT [facility] Last Admin: 01/28/18 07:32 Dose: 3 ml Amlodipine Besylate (Norvasc) 2.5 mg PO DAILY [facility] Last Admin: 01/27/18 13:34 Dose: 2.5 mg Aspirin (Aspirin, Baby) 81 mg PO BIDCM [facility] Last Admin: 01/28/18 08:44 Dose: 81 mg Atorvastatin Calcium (Lipitor) 40 mg PO QHS [facility] Last Admin: 01/27/18 20:36 Dose: 40 mg Enoxaparin Sodium (Lovenox) 30 mg SC DAILY@0600 [facility] Last Admin: 01/28/18 06:18 Dose: 30 mg Guaifenesin (Mucinex) 1,200 mg PO BID [facility] Last Admin: 01/28/18 08:44 Dose: 1,200 mg Magnesium Hydroxide (Milk Of Magnesia) 30 ml PO DAILY PRN PRN PRN Reason: Constipation Methylprednisolone (Solu-Medrol) 40 mg IV Q8 [facility] Last Admin: 01/28/18 06:18 Dose: 40 mg Metoprolol Tartrate (Lopressor (Beta Johnathon)) 50 mg PO BID [facility] Last Admin: 01/28/18 08:44 Dose: 50 mg Montelukast Sodium (Singulair) 10 mg PO DAILY [facility] Last Admin: 01/28/18 08:44 Dose: 10 mg Pantoprazole Sodium (Protonix) 40 mg PO DAILY [facility] Last Admin: 01/28/18 08:44 Dose: 40 mg Sodium Chloride () 5 - 30 ml IV UD PRN PRN Reason: SALINE FLUSH Last Admin: 01/28/18 06:18 Dose: 10 ml Valsartan (Diovan) 80 mg PO BID [facility] Last Admin: 01/27/18 20:36 Dose: 80 mg Medical Necessity - Tobacco Use Smoking Status: Former smoker Tobacco Use: Non-smoker Assessment/Plan Active and Suspected Problems (Last Reviewed 01/26/18 @ 10:13 by Belle Carnes ) COPD with acute exacerbation (Acute) Acute respiratory failure with hypoxia (Acute) 1. Acute exacerbation of COPD * Continued bronchodilators and IV Solu-Medrol. * Check chest x-ray to see if there is any infiltrate. * Unless there is definitive infiltrate I will hold off on antibiotics at this time. * Some subjective improvement today but still short of breath. * Overall, I feel the patient is doing better slowly. Anticipate a slow recovery process for the patient. We will continue with current management as is. 2. Acute hypoxic respiratory failure * Secondary to above 3. DVT prophylaxis with Lovenox 4. Advanced care planning: Discussed DNR with patient. Patient wishes to be DNR Comfort Care arrest and no intubation. I did inform patient that she can certainly change her mind if she so wishes at a later point. Code Visit Inpatient E&M: 31719 Subs Hosp L2
[2018-01-28] MEDS: Atorvastatin Calcium 40 MG Tablet PO (20:52)
[2018-01-28 21:16] LABS: Bedside Glucose 312 mg/dL (70-110)
[2018-01-29] VITALS (11 sets, daily range): BP systolic 134–155; BP diastolic 57–73; PULSE 69–80; RESP 16–22; TEMP 36.4–36.8; O2SAT 95–97
[2018-01-29] MEDS: 0.9% NaCl Peripheral Flush Adult/Peds IV ×2 (06:27→22:03)
[2018-01-29] MEDS: Enoxaparin 30 MG/0.3 ML Syringe SC (06:27)
[2018-01-29 07:01] LABS: Bedside Glucose 187 mg/dL (70-110)
[2018-01-29] MEDS: Ipratropium/Albuterol Sulfate 3 ML AMPUL.NEB INHALATION ×5 (07:09→22:45)
[2018-01-29] MEDS: Aspirin 81 MG TAB.CHEW PO ×2 (09:12→16:43)
[2018-01-29] MEDS: amLODIPine 2.5 MG Tablet PO (09:13)
[2018-01-29] MEDS: Metoprolol Tartrate 50 MG Tablet PO ×2 (09:13→21:56)
[2018-01-29] MEDS: Montelukast 10 MG Tablet PO (09:14)
[2018-01-29] MEDS: guaiFENesin 1,200 MG Tablet 1200 MG PO ×2 (09:14→21:55)
[2018-01-29] MEDS: Pantoprazole Sodium 40 MG Tablet PO (09:14)
--- NOTE | 2018-01-29 09:20 | PCM.PN.HOSP ---
Patient Problems: Active and Suspected Problems (Last Reviewed 01/26/18 @ 10:13 by Belle Carnes) COPD with acute exacerbation (Acute) Acute respiratory failure with hypoxia (Acute) Subjective: Is better but not back to her baseline yet. Having dyspnea on exertion. Vitals/I&O's: Vital Signs Temp Pulse Resp BP Pulse Ox 36.6 C 78 20 H 155/71 H 95 01/29/18 08:40 01/29/18 09:13 01/29/18 08:40 01/29/18 08:40 01/29/18 08:40 Oxygen Flow Rate (L/min) 3 Oxygen Delivery Method Nasal Cannula Weight: 66.8 kg Body Mass Index (BMI) 28.8 Intake and Output for Last 24 Hours 01/27/18 01/28/18 01/29/18 23:59 23:59 23:59 Intake Total 1000 / 1000 1460 / 1460 200 / 200 Balance 1000 / 1000 1460 / 1460 200 / 200 General: Alert, Cooperative, No apparent distress, Well developed, Well nourished, - - No respiratory distress. No conversational dyspnea. HEENT: Atraumatic Neck: No Nodes, Thyroid Normal Size and Texture Lungs: Clear to auscultation, No rhonchi, No wheeze, Diminished Cardiovascular: Regular rate, Regular Rhythm, Normal S1, Normal S2, No murmurs Abdomen: Bowel Sounds Present, Soft, Non Tender, Non-Distended, No Hepato-splenomegaly Extremities: No edema, No Calf Tenderness Skin: No rashes, No breakdown Psych/Mental Status: Normal Affect, Appropriate Laboratory Results 01/28/18 20:57: POC Glucose 312 H 01/29/18 06:24: POC Glucose 187 H Current Medications Albuterol Sulfate (Ventolin Aerosols) 2.5 mg INHALATION Q2H PRN PRN PRN Reason: SHORTNESS OF BREATH Last Admin: 01/26/18 16:08 Dose: 2.5 mg Albuterol/Ipratropium (Duoneb) 3 ml INHALATION Q4H.RT [facility] Last Admin: 01/29/18 07:09 Dose: 3 ml Amlodipine Besylate (Norvasc) 2.5 mg PO DAILY [facility] Last Admin: 01/29/18 09:13 Dose: 2.5 mg Aspirin (Aspirin, Baby) 81 mg PO BIDCM [facility] Last Admin: 01/29/18 09:12 Dose: 81 mg Atorvastatin Calcium (Lipitor) 40 mg PO QHS [facility] Last Admin: 01/28/18 20:52 Dose: 40 mg Dextrose (D50w Syringe) 0 gm IV X1 PRN; Protocol PRN Reason: Hypoglycemia Enoxaparin Sodium (Lovenox) 30 mg SC DAILY@0600 [facility] Last Admin: 01/29/18 06:27 Dose: 30 mg Glucagon () 1 mg IM .X1 PRN PRN Reason: Hypoglycemia Guaifenesin (Mucinex) 1,200 mg PO BID [facility] Last Admin: 01/29/18 09:14 Dose: 1,200 mg Insulin Aspart (Novolog Flexpen (Bkc)) 0 units SC ACHS [facility] PRN Reason: Protocol Last Admin: 01/29/18 06:24 Dose: 2 u Magnesium Hydroxide (Milk Of Magnesia) 30 ml PO DAILY PRN PRN PRN Reason: Constipation Methylprednisolone (Solu-Medrol) 40 mg IV Q8 [facility] Last Admin: 01/29/18 06:27 Dose: 40 mg Metoprolol Tartrate (Lopressor (Beta Johnathon)) 50 mg PO BID [facility] Last Admin: 01/29/18 09:13 Dose: 50 mg Montelukast Sodium (Singulair) 10 mg PO DAILY [facility] Last Admin: 01/29/18 09:14 Dose: 10 mg Pantoprazole Sodium (Protonix) 40 mg PO DAILY [facility] Last Admin: 01/29/18 09:14 Dose: 40 mg Sodium Chloride () 5 - 30 ml IV UD PRN PRN Reason: SALINE FLUSH Last Admin: 01/29/18 06:27 Dose: 10 ml Valsartan (Diovan) 80 mg PO BID [facility] Last Admin: 01/29/18 09:13 Dose: 80 mg Medical Necessity - Tobacco Use Smoking Status: Former smoker Tobacco Use: Non-smoker Assessment/Plan Active and Suspected Problems (Last Reviewed 01/26/18 @ 10:13 by Belle Carnes) COPD with acute exacerbation (Acute) Acute respiratory failure with hypoxia (Acute) 1. Acute exacerbation of COPD Improving. decrease Solumedrol to BID, if improved 01/30, plan to dc home. Continued bronchodilators and IV Solu-Medrol. Check chest x-ray to see if there is any infiltrate. Unless there is definitive infiltrate I will hold off on antibiotics at this time. Some subjective improvement today but still short of breath. Overall, I feel the patient is doing better slowly. Anticipate a slow recovery process for the patient. We will continue with current management as is. 2. Acute hypoxic respiratory failure Secondary to above 3. DVT prophylaxis with Lovenox 4. Advanced care planning: Discussed DNR with patient. Patient wishes to be DNR Comfort Care arrest and no intubation. I did inform patient that she can certainly change her mind if she so wishes at a later point. Code Visit Inpatient E&M: 90875 Subs Hosp L2
--- NOTE | 2018-01-29 09:25 | PN_ITS ---
Patient Problems: Active and Suspected Problems (Last Reviewed 01/26/18 @ 10:13 by Belle Carnes ) COPD with acute exacerbation (Acute) Acute respiratory failure with hypoxia (Acute) Subjective: Is better but not back to her baseline yet. Having dyspnea on exertion. Vitals/I&O's: Vital Signs Temp Pulse Resp BP Pulse Ox 36.6 C 78 20 H 155/71 H 95 01/29/18 08:40 01/29/18 09:13 01/29/18 08:40 01/29/18 08:40 01/29/18 08:40 Oxygen Flow Rate (L/min) 3 Oxygen Delivery Method Nasal Cannula Weight: 66.8 kg Body Mass Index (BMI) 28.8 Intake and Output for Last 24 Hours 01/27/18 01/28/18 01/29/18 23:59 23:59 23:59 Intake Total 1000 / 1000 1460 / 1460 200 / 200 Balance 1000 / 1000 1460 / 1460 200 / 200 General: Alert, Cooperative, No apparent distress, Well developed, Well nourished, - - No respiratory distress. No conversational dyspnea. HEENT: Atraumatic Neck: No Nodes, Thyroid Normal Size and Texture Lungs: Clear to auscultation, No rhonchi, No wheeze, Diminished Cardiovascular: Regular rate, Regular Rhythm, Normal S1, Normal S2, No murmurs Abdomen: Bowel Sounds Present, Soft, Non Tender, Non-Distended, No Hepato- splenomegaly Extremities: No edema, No Calf Tenderness Skin: No rashes, No breakdown Psych/Mental Status: Normal Affect, Appropriate Laboratory Results 01/28/18 20:57: POC Glucose 312 H 01/29/18 06:24: POC Glucose 187 H Current Medications Albuterol Sulfate (Ventolin Aerosols) 2.5 mg INHALATION Q2H PRN PRN PRN Reason: SHORTNESS OF BREATH Last Admin: 01/26/18 16:08 Dose: 2.5 mg Albuterol/Ipratropium (Duoneb) 3 ml INHALATION Q4H.RT [facility] Last Admin: 01/29/18 07:09 Dose: 3 ml Amlodipine Besylate (Norvasc) 2.5 mg PO DAILY [facility] Last Admin: 01/29/18 09:13 Dose: 2.5 mg Aspirin (Aspirin, Baby) 81 mg PO BIDCM [facility] Last Admin: 01/29/18 09:12 Dose: 81 mg Atorvastatin Calcium (Lipitor) 40 mg PO QHS [facility] Last Admin: 01/28/18 20:52 Dose: 40 mg Dextrose (D50w Syringe) 0 gm IV X1 PRN; Protocol PRN Reason: Hypoglycemia Enoxaparin Sodium (Lovenox) 30 mg SC DAILY@0600 [facility] Last Admin: 01/29/18 06:27 Dose: 30 mg Glucagon () 1 mg IM .X1 PRN PRN Reason: Hypoglycemia Guaifenesin (Mucinex) 1,200 mg PO BID [facility] Last Admin: 01/29/18 09:14 Dose: 1,200 mg Insulin Aspart (Novolog Flexpen (Bkc)) 0 units SC ACHS [facility] PRN Reason: Protocol Last Admin: 01/29/18 06:24 Dose: 2 u Magnesium Hydroxide (Milk Of Magnesia) 30 ml PO DAILY PRN PRN PRN Reason: Constipation Methylprednisolone (Solu-Medrol) 40 mg IV Q8 [facility] Last Admin: 01/29/18 06:27 Dose: 40 mg Metoprolol Tartrate (Lopressor (Beta Johnathon)) 50 mg PO BID [facility] Last Admin: 01/29/18 09:13 Dose: 50 mg Montelukast Sodium (Singulair) 10 mg PO DAILY [facility] Last Admin: 01/29/18 09:14 Dose: 10 mg Pantoprazole Sodium (Protonix) 40 mg PO DAILY [facility] Last Admin: 01/29/18 09:14 Dose: 40 mg Sodium Chloride () 5 - 30 ml IV UD PRN PRN Reason: SALINE FLUSH Last Admin: 01/29/18 06:27 Dose: 10 ml Valsartan (Diovan) 80 mg PO BID [facility] Last Admin: 01/29/18 09:13 Dose: 80 mg Medical Necessity - Tobacco Use Smoking Status: Former smoker Tobacco Use: Non-smoker Assessment/Plan Active and Suspected Problems (Last Reviewed 01/26/18 @ 10:13 by Belle Carnes ) COPD with acute exacerbation (Acute) Acute respiratory failure with hypoxia (Acute) 1. Acute exacerbation of COPD * Improving. * decrease Solumedrol to BID, if improved 01/30, plan to dc home. * Continued bronchodilators and IV Solu-Medrol. * Check chest x-ray to see if there is any infiltrate. * Unless there is definitive infiltrate I will hold off on antibiotics at this time. * Some subjective improvement today but still short of breath. * Overall, I feel the patient is doing better slowly. Anticipate a slow recovery process for the patient. We will continue with current management as is. 2. Acute hypoxic respiratory failure * Secondary to above 3. DVT prophylaxis with Lovenox 4. Advanced care planning: Discussed DNR with patient. Patient wishes to be DNR Comfort Care arrest and no intubation. I did inform patient that she can certainly change her mind if she so wishes at a later point. Code Visit Inpatient E&M: 10505 Subs Hosp L2
[2018-01-29 11:31] LABS: Bedside Glucose 258 mg/dL (70-110)
[2018-01-29 17:05] LABS: Bedside Glucose 175 mg/dL (70-110)
[2018-01-29] MEDS: Atorvastatin Calcium 40 MG Tablet PO (21:56)
[2018-01-29 22:26] LABS: Bedside Glucose 215 mg/dL (70-110)
[2018-01-30] VITALS (7 sets, daily range): BP systolic 141–142; BP diastolic 60–75; PULSE 67–78; RESP 14–18; TEMP 36.3–36.5; O2SAT 95–98
[2018-01-30] MEDS: Ipratropium/Albuterol Sulfate 3 ML AMPUL.NEB INHALATION ×3 (02:55→10:38)
[2018-01-30] MEDS: Enoxaparin 30 MG/0.3 ML Syringe SC (06:27)
[2018-01-30] MEDS: Metoprolol Tartrate 50 MG Tablet PO (07:49)
[2018-01-30] MEDS: Montelukast 10 MG Tablet PO (07:49)
[2018-01-30] MEDS: Pantoprazole Sodium 40 MG Tablet PO (07:49)
[2018-01-30] MEDS: Aspirin 81 MG TAB.CHEW PO (07:49)
[2018-01-30] MEDS: guaiFENesin 1,200 MG Tablet 1200 MG PO (07:50)
[2018-01-30] MEDS: amLODIPine 2.5 MG Tablet PO (07:50)
[2018-01-30] MEDS: 0.9% NaCl Peripheral Flush Adult/Peds IV (07:54)
[2018-01-30 08:11] LABS: Bedside Glucose 223 mg/dL (70-110)
--- NOTE | 2018-01-30 11:12 | PN_ITS ---
Patient Problems: Active and Suspected Problems (Last Reviewed 01/26/18 @ 10:13 by Belle Carnes ) COPD with acute exacerbation (Acute) Acute respiratory failure with hypoxia (Acute) Subjective: No change from yesterday. Vitals/I&O's: Vital Signs Temp Pulse Resp BP Pulse Ox 36.5 C L 70 18 141/60 H 96 01/30/18 07:55 01/30/18 10:38 01/30/18 10:38 01/30/18 07:55 01/30/18 07:55 Oxygen Flow Rate (L/min) 2 Oxygen Delivery Method Nasal Cannula Weight: 66.8 kg Body Mass Index (BMI) 28.8 Intake and Output for Last 24 Hours 01/28/18 01/29/18 01/30/18 23:59 23:59 23:59 Intake Total 1460 / 1460 200 / 200 300 / 300 Balance 1460 / 1460 200 / 200 300 / 300 General: Alert, Cooperative, No apparent distress HEENT: Atraumatic, Normocephalic Neck: No Nodes, Thyroid Normal Size and Texture Lungs: Diminished, Wheezes, - - improved aeration overall. Cardiovascular: Regular rate, Regular Rhythm, Normal S1, Normal S2, No murmurs Abdomen: Bowel Sounds Present, Soft, Non Tender, Non-Distended, No Hepato- splenomegaly, Passing Flatus Extremities: No edema, No Calf Tenderness Psych/Mental Status: Flat Affect Laboratory Results 01/29/18 11:18: POC Glucose 258 H 01/29/18 16:40: POC Glucose 175 H 01/29/18 21:47: POC Glucose 215 H 01/30/18 07:46: POC Glucose 223 H Current Medications Albuterol Sulfate (Ventolin Aerosols) 2.5 mg INHALATION Q2H PRN PRN PRN Reason: SHORTNESS OF BREATH Last Admin: 01/26/18 16:08 Dose: 2.5 mg Albuterol/Ipratropium (Duoneb) 3 ml INHALATION Q4H.RT [facility] Last Admin: 01/30/18 10:38 Dose: 3 ml Amlodipine Besylate (Norvasc) 2.5 mg PO DAILY [facility] Last Admin: 01/30/18 07:50 Dose: 2.5 mg Aspirin (Aspirin, Baby) 81 mg PO BIDCM [facility] Last Admin: 01/30/18 07:49 Dose: 81 mg Atorvastatin Calcium (Lipitor) 40 mg PO QHS [facility] Last Admin: 01/29/18 21:56 Dose: 40 mg Dextrose (D50w Syringe) 0 gm IV X1 PRN; Protocol PRN Reason: Hypoglycemia Enoxaparin Sodium (Lovenox) 30 mg SC DAILY@0600 [facility] Last Admin: 01/30/18 06:27 Dose: 30 mg Glucagon () 1 mg IM .X1 PRN PRN Reason: Hypoglycemia Guaifenesin (Mucinex) 1,200 mg PO BID [facility] Last Admin: 01/30/18 07:50 Dose: 1,200 mg Insulin Aspart (Novolog Flexpen (Bkc)) 0 units SC ACHS [facility] PRN Reason: Protocol Last Admin: 01/30/18 07:48 Dose: 4 u Magnesium Hydroxide (Milk Of Magnesia) 30 ml PO DAILY PRN PRN PRN Reason: Constipation Methylprednisolone (Solu-Medrol) 40 mg IV Q12 [facility] Last Admin: 01/30/18 07:50 Dose: 40 mg Metoprolol Tartrate (Lopressor (Beta Johnathon)) 50 mg PO BID [facility] Last Admin: 01/30/18 07:49 Dose: 50 mg Montelukast Sodium (Singulair) 10 mg PO DAILY [facility] Last Admin: 01/30/18 07:49 Dose: 10 mg Pantoprazole Sodium (Protonix) 40 mg PO DAILY [facility] Last Admin: 01/30/18 07:49 Dose: 40 mg Sodium Chloride () 5 - 30 ml IV UD PRN PRN Reason: SALINE FLUSH Last Admin: 01/30/18 07:54 Dose: 10 ml Valsartan (Diovan) 80 mg PO BID [facility] Last Admin: 01/30/18 07:49 Dose: 80 mg Medical Necessity - Tobacco Use Smoking Status: Former smoker Tobacco Use: Non-smoker Assessment/Plan Active and Suspected Problems (Last Reviewed 01/26/18 @ 10:13 by Belle Carnes ) COPD with acute exacerbation (Acute) Acute respiratory failure with hypoxia (Acute) 1. Acute exacerbation of COPD * Improving. * decrease Solumedrol to BID, if improved 01/30, plan to dc home. * Continued bronchodilators and steroids * No infiltrate on CXR * Unless there is definitive infiltrate I will hold off on antibiotics at this time. * Some subjective improvement today but still short of breath. * Overall, I feel the patient is doing better slowly. Anticipate a slow recovery process for the patient. We will continue with current management as is. * DC with pred taper * follow up with pulm in 2 weeks, rather than next month 2. Acute hypoxic respiratory failure * Secondary to above 3. DVT prophylaxis with Lovenox 4. Advanced care planning: Discussed DNR with patient. Patient wishes to be DNR Comfort Care arrest and no intubation. I did inform patient that she can certainly change her mind if she so wishes at a later point.
--- NOTE | 2018-01-30 11:17 | PCM.DC ---
- Discharge Diagnoses Current Active Problems: Current Active and Chronic Problems (Last Reviewed 01/26/18 @ 10:13 by Belle Carnes) COPD with acute exacerbation (Acute) Acute respiratory failure with hypoxia (Acute) Complex regional pain syndrome i of left upper limb (Chronic) You will use the following diet at home:: No restrictions Your food should be the consistency of: Regular Your liquids should be the consistency of: Regular/Thin Discharge Activity: Return to Normal Activity Call your doctor if you observe: Fever of 101 or Higher, Shortness of breath Instructions: Discharge Instructions: COPD, Treatment for COPD Allergies/Adverse Reactions: Allergies Sulfa (Sulfonamide Antibiotics) Allergy (Verified 01/26/18 10:13) Rash carbamazepine [From Tegretol] Adverse Reaction (Verified 01/26/18 10:13) liver damage famotidine [From Pepcid] Adverse Reaction (Verified 01/26/18 10:13) hair loss ivp dye Allergy (Uncoded 01/26/18 10:13) Hives Medications to take at Discharge Aspirin [Aspirin, Baby] 81 mg PO BID 10/08/16 Metoprolol Tartrate [Lopressor (beta gila)] 50 mg PO BID 10/08/16 Pantoprazole Sodium [Protonix] 40 mg PO DAILY 10/08/16 Rosuvastatin Calcium [Crestor] 20 mg PO QHS 10/08/16 Valsartan [Diovan] 80 mg PO BID 10/08/16 Amlodipine [Norvasc] 2.5 mg PO DAILY 11/11/17 Fluticasone/Salmeterol [Advair 250/50 Mcg Diskus] 1 puff INHALATION BID 11/11/17 Montelukast [Singulair] 10 mg PO DAILY 11/11/17 Albuterol Sulfate [Ventolin Hfa] 18 gm IH Q6H PRN PRN #1 hfa.aer.ad MDD 1-2 puffs 01/30/18 Guaifenesin [Mucinex] 1,200 mg PO BID #10 tab 01/30/18 Prednisone 10 mg PO DAILY #30 tab 01/30/18 The following prescriptions were given: Albuterol Sulfate [Ventolin Hfa] 18 gm IH Q6H PRN PRN #1 hfa.aer.ad MDD 1-2 puffs PRN Reason: Sob &/Or Wheezing Prednisone 10 mg PO DAILY #30 tab Guaifenesin [Mucinex] 1,200 mg PO BID #10 tab Primary Care Physician: Heidy Lowry MD [Primary Care Provider] - Within 2 Weeks Please Follow Up With: Merlyn Aguilar NP-C When: 2 weeks Proposed Discharge Date: 01/30/18
--- NOTE | 2018-01-30 11:18 | PCM.DC.SUM ---
Discharge Date and Diagnosis - Problem List Patient Problems: Active and Suspected Problems (Last Reviewed 01/26/18 @ 10:13 by Belle Carnes) COPD with acute exacerbation (Acute) Acute respiratory failure with hypoxia (Acute) Date of Admission: 01/26/18 Date of Discharge: 01/30/18 - Primary Discharge Diagnosis Active and Suspected Problems (Last Reviewed 01/26/18 @ 10:13 by Belle Carnes) COPD with acute exacerbation (Acute) Acute respiratory failure with hypoxia (Acute) - Secondary Discharge Diagnosis Chronic Problems (Last Reviewed 01/26/18 @ 10:13 by Belle Canres) Complex regional pain syndrome i of left upper limb (Chronic) Lung nodule (Chronic) COPD (chronic obstructive pulmonary disease) (Chronic) Stomach cancer (Chronic) Personal history of solitary pulmonary nodule (Chronic) GERD (gastroesophageal reflux disease) (Chronic) Hypertension (Chronic) History of partial colectomy (Chronic) History of gastric cancer (Chronic) Diverticulosis (Chronic) CAD (coronary artery disease) of artery bypass graft (Chronic) 10/2016 Hospital Course and Treatment Imaging Results: Clinical Impression(s) from Imaging Studies Chest X-Ray 01/26/18 16:16 IMPRESSION: COPD/emphysema. No active infiltrate or effusion. at 1743 Reported and signed by: Elvi Montes MD Electronically Signed: Elvi Montes MD at 17:41 EDT Tel , Service support , Operations: None Procedures: None Summary of Care Provided: The patient is a 72 year old F presents to Dr. Winston's office with shortness of breath. Patient had been treated as outpatient for COPD and was just failing to progress and presented to his office which is already a previously scheduled follow-up appointment. He directed her to a direct admission. Patient was measuring her pulse ox at home and was in the 80s. Patient was started on Solu-Medrol and bronchodilators. Patient slowly has improved during the course of her hospitalization. Chest x-ray was negative for any infiltrate and patient was not started on antibiotics. Patient states that she feels the same as she did yesterday but did cut back her steroids from 3 times a day to twice daily and her aeration overall is improved and her oxygen is actually been cut back from 3-2 L. Patient is on 3 L of oxygen at home. I feel the patient can be discharged to home. I have elected to proceed with a long steroid taper over the next couple weeks. I have also started the patient follow-up with Courtney Linares or Dr. Winston in the next couple weeks rather than keep her appointment for March 03. It is too far out for with this patient is dealing with and would prefer her to be seen sooner. [] Discharge Diet: No Restrictions Discharge Activity: Return to Normal Activity Call your doctor if you observe: Fever of 101 or Higher, Shortness of breath Home Medications: Medications to take at Discharge Aspirin [Aspirin, Baby] 81 mg PO BID 10/08/16 Metoprolol Tartrate [Lopressor (beta gila)] 50 mg PO BID 10/08/16 Pantoprazole Sodium [Protonix] 40 mg PO DAILY 10/08/16 Rosuvastatin Calcium [Crestor] 20 mg PO QHS 10/08/16 Valsartan [Diovan] 80 mg PO BID 10/08/16 Amlodipine [Norvasc] 2.5 mg PO DAILY 11/11/17 Fluticasone/Salmeterol [Advair 250/50 Mcg Diskus] 1 puff INHALATION BID 11/11/17 Montelukast [Singulair] 10 mg PO DAILY 11/11/17 Albuterol Sulfate [Ventolin Hfa] 18 gm IH Q6H PRN PRN #1 hfa.aer.ad MDD 1-2 puffs 01/30/18 Guaifenesin [Mucinex] 1,200 mg PO BID #10 tab 01/30/18 Prednisone 10 mg PO DAILY #30 tab 01/30/18 Following Prescrptions Were Given to Patient: Albuterol Sulfate [Ventolin Hfa] 18 gm IH Q6H PRN PRN #1 hfa.aer.ad MDD 1-2 puffs PRN Reason: Sob &/Or Wheezing Prednisone 10 mg PO DAILY #30 tab Guaifenesin [Mucinex] 1,200 mg PO BID #10 tab Primary Care Physician: Heidy Lowry MD [Primary Care Provider] - Within 2 Weeks Please Follow Up With: Merlyn Aguilar NP-C When: 2 weeks Patient Instructions: Discharge Instructions: COPD, Treatment for COPD Disposition: Home with Home Health Minutes spent on discharge:: 32 Patient Condition:: Fair Medical Necessity - Tobacco Use Smoking Status: Former smoker Tobacco Use: Non-smoker Meaningful Use Info Meaningful Use Diagnoses (Choose all that apply): None applicable Code Visit Inpatient E&M: 78020 Disch Hosp
--- NOTE | 2018-01-30 11:21 | DS.PCM_ITS ---
Discharge Date and Diagnosis - Problem List Patient Problems: Active and Suspected Problems (Last Reviewed 01/26/18 @ 10:13 by Belle Carnes ) COPD with acute exacerbation (Acute) Acute respiratory failure with hypoxia (Acute) Date of Admission: 01/26/18 Date of Discharge: 01/30/18 - Primary Discharge Diagnosis Active and Suspected Problems (Last Reviewed 01/26/18 @ 10:13 by Belle Carnes ) COPD with acute exacerbation (Acute) Acute respiratory failure with hypoxia (Acute) - Secondary Discharge Diagnosis Chronic Problems (Last Reviewed 01/26/18 @ 10:13 by Belle Carnes) Complex regional pain syndrome i of left upper limb (Chronic) Lung nodule (Chronic) COPD (chronic obstructive pulmonary disease) (Chronic) Stomach cancer (Chronic) Personal history of solitary pulmonary nodule (Chronic) GERD (gastroesophageal reflux disease) (Chronic) Hypertension (Chronic) History of partial colectomy (Chronic) History of gastric cancer (Chronic) Diverticulosis (Chronic) CAD (coronary artery disease) of artery bypass graft (Chronic) 10/2016 Hospital Course and Treatment Imaging Results: Clinical Impression(s) from Imaging Studies Chest X-Ray 01/26/18 16:16 IMPRESSION: COPD/emphysema. No active infiltrate or effusion. at 1743 Reported and signed by: Elvi Montes MD Electronically Signed: Elvi Montes MD at 17:41 EDT Tel , Service support , Operations: None Procedures: None Summary of Care Provided: The patient is a 72 year old F presents to Dr. Winston's office with shortness of breath. Patient had been treated as outpatient for COPD and was just failing to progress and presented to his office which is already a previously scheduled follow-up appointment. He directed her to a direct admission. Patient was measuring her pulse ox at home and was in the 80s. Patient was started on Solu- Medrol and bronchodilators. Patient slowly has improved during the course of her hospitalization. Chest x-ray was negative for any infiltrate and patient was not started on antibiotics. Patient states that she feels the same as she did yesterday but did cut back her steroids from 3 times a day to twice daily and her aeration overall is improved and her oxygen is actually been cut back from 3-2 L. Patient is on 3 L of oxygen at home. I feel the patient can be discharged to home. I have elected to proceed with a long steroid taper over the next couple weeks. I have also started the patient follow-up with Courtney Linares or Dr. Winston in the next couple weeks rather than keep her appointment for March 03. It is too far out for with this patient is dealing with and would prefer her to be seen sooner. [] Discharge Diet: No Restrictions Discharge Activity: Return to Normal Activity Call your doctor if you observe: Fever of 101 or Higher, Shortness of breath Home Medications: Medications to take at Discharge Aspirin [Aspirin, Baby] 81 mg PO BID 10/08/16 Metoprolol Tartrate [Lopressor (beta gila)] 50 mg PO BID 10/08/16 Pantoprazole Sodium [Protonix] 40 mg PO DAILY 10/08/16 Rosuvastatin Calcium [Crestor] 20 mg PO QHS 10/08/16 Valsartan [Diovan] 80 mg PO BID 10/08/16 Amlodipine [Norvasc] 2.5 mg PO DAILY 11/11/17 Fluticasone/Salmeterol [Advair 250/50 Mcg Diskus] 1 puff INHALATION BID Montelukast [Singulair] 10 mg PO DAILY 11/11/17 Albuterol Sulfate [Ventolin Hfa] 18 gm IH Q6H PRN PRN #1 hfa.aer.ad MDD 1-2 puffs 01/30/18 Guaifenesin [Mucinex] 1,200 mg PO BID #10 tab 01/30/18 Prednisone 10 mg PO DAILY #30 tab 01/30/18 Following Prescrptions Were Given to Patient: Albuterol Sulfate [Ventolin Hfa] 18 gm IH Q6H PRN PRN #1 hfa.aer.ad MDD 1-2 puffs PRN Reason: Sob &/Or Wheezing Prednisone 10 mg PO DAILY #30 tab Guaifenesin [Mucinex] 1,200 mg PO BID #10 tab Primary Care Physician: Heidy Lowry MD [Primary Care Provider] - Within 2 Weeks Please Follow Up With: Merlyn Aguilar NP-C When: 2 weeks Patient Instructions: Discharge Instructions: COPD, Treatment for COPD Disposition: Home with Home Health Minutes spent on discharge:: 32 Patient Condition:: Fair Medical Necessity - Tobacco Use Smoking Status: Former smoker Tobacco Use: Non-smoker Meaningful Use Info Meaningful Use Diagnoses (Choose all that apply): None applicable Code Visit Inpatient E&M: 11361 Disch Hosp
[2018-01-30 11:41] LABS: Bedside Glucose 361 mg/dL (70-110)
== END 2018-01-30 13:26 | disposition home or self-care (01) | DRG 190 ==
PROVIDERS: Family Provider Family Medicine; PCP Family Medicine
DX: J44.1 Chronic obstructive pulmonary disease with (acute) exacerbation (principal); J96.01 Acute respiratory failure with hypoxia; G90.512 Complex regional pain syndrome I of left upper limb; I25.810 Atherosclerosis of coronary artery bypass graft(s) without angina pectoris; K21.9 Gastro-esophageal reflux disease without esophagitis; R91.1 Solitary pulmonary nodule; I10 Essential (primary) hypertension; Z90.49 Acquired absence of other specified parts of digestive tract; Z85.028 Personal history of other malignant neoplasm of stomach; Z99.81 Dependence on supplemental oxygen; Z87.891 Personal history of nicotine dependence; Z95.1 Presence of aortocoronary bypass graft; Z95.2 Presence of prosthetic heart valve; Z66 Do not resuscitate
CPT/HCPCS: 36415; 71046; 80048; 82962; 85025; 94640; 94667; 94668; A4216

== ENCOUNTER → 2018-08-11 11:16 | Outpatient (CLI) | payer MEDICARE, OTHER, SELFPAY ==
--- NOTE | 2018-08-11 11:19 | VDLE_ITS ---
Reason For Study: Pain RIGHT LEFT GSV is normal. GSV is normal. CFV is compressible, spontaneous, phasic, CFV is compressible, spontaneous, phasic, competent and demonstrates normal competent, and demonstrates normal augmentation. augmentation. FV is compressible, spontaneous, phasic, FV is compressible, spontaneous, phasic, competent and demonstrates normal competent and demonstrates normal augmentation. augmentation. POP V is compressible, spontaneous, phasic, POP V is compressible, spontaneous, phasic, competent and demonstrates normal competent and demonstrates normal augmentation. augmentation. T/P Trunk is compressible. T/P Trunk is compressible. PTV is compressible. PTV is compressible. RT PerV is compressible. LT PerV is compressible. Procedure Exam performed in department. A preliminary report was called and/or faxed to Dr. Winston. <> Interpretation Summary Deep veins of the lower extremities are bilaterally patent and compressible segmentally. There is no evidence of deep vein thrombosis on either side. Valvular competence appears intact within the proximal deep venous systems bilaterally. The greater saphenous veins appear bilaterally patent and compressible segmentally. Ordering Physician: Ryan Winston D.O. Referring Physician: Heidy Lowry Performed By: Belen Schmidt, CARRIE, RVT
== END ==
PROVIDERS: Family Provider Family Medicine; PCP Family Medicine; Referring Provider Internal Medicine Critical Care Medicine; Visit Provider Internal Medicine Critical Care Medicine
DX: Z86.718 Personal history of other venous thrombosis and embolism (principal)
CPT/HCPCS: 93970